=== PATIENT | female | born 1960 | race Caucasian/White ===

== ENCOUNTER 2017-11-26 18:59 | Inpatient (IN) | payer MEDICARE ==
[2017-11-26 21:01] LABS: ABS Basophils 0.1 10^3/ul (0-0.2); ABS Eosinophils 0.1 10^3/ul (0-0.6); ABS Lymphocytes 3.1 10^3/ul (1.0-4.8); ABS Monocytes 1.1 10^3/ul (0-0.8); ABS Neutrophils 11.2 10^3/ul (1.5-7.7); ABS Nucleated RBC 0 10^3/ul; Eosinophil % 0.6 % (0-6); Hematocrit 40 % (35-47); Hemoglobin 13.2 g/dl (12.0-16.0); Mean Corpuscular HGB Conc 33 g/dl (31-36); Mean Corpuscular Hemoglobin 29 pg (27-31); Mean Corpuscular Volume 88 fL (80-97); Mean Platelet Volume 9.5 um3 (7.4-10.4); Nucleated Red Blood Cells % 0.1; Platelet Count 184 10^3/ul (150-450); Red Blood Count 4.53 10^6/ul (4.0-5.4); Red Cell Distribution Width 14 % (10.5-15); White Blood Count 15.7 10^3/ul (3.5-10.8)
[2017-11-26 21:13] LABS: INR 1.05 (0.77-1.02)
[2017-11-26 21:23] LABS: EGFR Non-African American 67.4 (>60)
--- NOTE | 2017-11-26 21:26 | RAD ---
Indication: Fall, confusion. CT of the brain was performed without IV contrast. Comparison is made with previous exam dated October 24, 2012. Ventricular structures are midline. No midline shift is noted. Central and cortical atrophy is noted. Decreased densities are noted in the areas of periventricular and subcortical white matter which appears similar to prior exam. This is consistent with chronic ischemic White matter change. No evidence of intracranial mass or hemorrhage is noted. Mastoid air cells and paranasal sinuses are otherwise unremarkable. IMPRESSION: Atrophy with chronic ischemic White matter change. No intracranial mass or hemorrhage is noted.
--- NOTE | 2017-11-26 21:34 | ED ---
Dale Fowler Rebecca, scribed for Kip Seals MD on 11/26/17 at 1949 . Complex/Multi-Sys Presentation - HPI Summary HPI Summary: Pt is a 57 y/o F BIBA with a PMHx of MS who presents to ED for acute on chronic bilateral LE pain and weakness. Pt reports she has had pain "for so long, I don' t remember when," when asked of onset. Pain is described as sore and is moderate , ranked 5/10. Pt reports that both legs are weak and that she has been falling recently, including on Thursday (2 days ago) and having difficulty getting up. Confirms her legs have been this weak before. Family additionally notes that she has been confused and had a decreased appetite, as well as a sore on the back of the right leg. Denies CP, abd pain, neck and back pain. She does not believe she has been admitted to the hospital for MS exacerbation in the past. Does not currently have a neurologist, as he retired. Lives with family. - History Of Current Complaint Chief Complaint: EDAltMentalStatus Time Seen by Provider: 11/26/17 19:39 Hx Obtained From: Patient Onset/Duration: Still Present Severity Currently: Moderate - 5/10 Location: Pain At: - Bilateral LE Character: Dull - Sore Aggravating Factor(s): Nothing Alleviating Factor(s): Nothing Associated Signs And Symptoms: Positive: Weakness - LE, Other - Bilateral LE pain, confused. Negative: Chest Pain, Abdominal Pain - Allergies/Home Medications Allergies/Adverse Reactions: Allergies Allergy/AdvReac Type Severity Reaction Status Date / Time MS Ceftriaxone Allergy Severe Anaphylatic Verified 10/24/12 15:53 [From Rocephin] Shock MS Glatiramer [From Copaxone] Allergy Severe Anaphylatic Verified 10/24/12 15:53 Shock MS Mannitol [From Copaxone] Allergy Severe Anaphylatic Verified 10/24/12 15:53 Shock PMH/Surg Hx/FS Hx/Imm Hx Endocrine/Hematology History: Denies: Hx Anticoagulant Therapy, Hx Diabetes Cardiovascular History: Denies: Hx Congestive Heart Failure Neurological History: Reports: Other Neuro Impairments/Disorders - MS - Cancer History Hx Chemotherapy: No Hx Radiation Therapy: No Infectious Disease History: No Infectious Disease History: Denies: Traveled Outside the [place] in Last 30 Days - Family History Known Family History: Positive: Cardiac Disease, Hypertension - Social History Lives: With Family Substance Use Type: Reports: None Review of Systems Positive: Other - Confused Negative: Chest Pain Positive: Other - Decreased appetite. Negative: Abdominal Pain Positive: Other - Bilateral LE pain; NEGATIVE: Neck and back pain Positive: Other - Sore on back of right leg Positive: Weakness - Bilateral LE weakness All Other Systems Reviewed And Are Negative: Yes Physical Exam - Summary Physical Exam Summary: General: well-appearing, no pain distress Skin: warm, color reflects adequate perfusion, dry Head: normal Eyes: EOMI, MAEGAN ENT: normal Neck: supple, nontender Respiratory: CTA, breath sounds present Cardiovascular: RRR Abdomen: soft, nontender Bowel: present Musculoskeletal: she does not move her right leg, she has a pressure sore on her right heel and an abrasion on the right calf, normal pulses and capillary refill, she does move the left leg Neurological: normal, sensory/motor intact, A&O x3 Psychological: affect/mood appropriate Triage Information Reviewed: Yes Vital Signs On Initial Exam: Initial Vitals Temp Pulse Resp BP Pulse Ox 98.3 F 103 15 119/75 100 11/26/17 19:06 11/26/17 19:06 11/26/17 19:06 11/26/17 19:06 11/26/17 19:06 Vital Signs Reviewed: Yes - Susan Coma Scale Glascow Coma Scale Comments: 15 Diagnostics - Vital Signs Vital Signs Temp Pulse Resp BP Pulse Ox 11/26/17 19:06 98.3 F 103 15 119/75 100 - Laboratory Lab Results: Lab Results 11/26/17 11/26/17 11/26/17 Range/Units 20:48 20:48 20:48 WBC (3.5-10.8) 10^3/ul RBC (4.0-5.4) 10^6/ul Hgb (12.0-16.0) g/dl Hct (35-47) % MCV (80-97) fL MCH (27-31) pg MCHC (31-36) g/dl RDW (10.5-15) % Plt Count (150-450) 10^3/ul MPV (7.4-10.4) um3 Neut % (Auto) (38-83) % Lymph % (Auto) (25-47) % [place] % (Auto) (0-7) % Eos % (Auto) (0-6) % Baso % (Auto) (0-2) % Absolute Neuts (auto) (1.5-7.7) 10^3/ul Absolute Lymphs (auto) (1.0-4.8) 10^3/ul Absolute Monos (auto) (0-0.8) 10^3/ul Absolute Eos (auto) (0-0.6) 10^3/ul Absolute Basos (auto) (0-0.2) 10^3/ul Absolute Nucleated RBC 10^3/ul Nucleated RBC % INR (Anticoag Therapy) 1.05 H (0.77-1.02) APTT 26.6 (26.0-36.3) seconds D-Dimer, Quantitative > 1050 H (Less Than 230) ng/mL Sodium 137 L (139-145) mmol/L Potassium 4.0 (3.5-5.0) mmol/L Chloride 101 (101-111) mmol/L Carbon Dioxide 26 (22-32) mmol/L Anion Gap 10 (2-11) mmol/L BUN 31 H (6-24) mg/dL Creatinine 0.87 (0.51-0.95) mg/dL Est GFR ( Amer) 86.6 (>60) Est GFR (Non-Af Amer) 67.4 (>60) BUN/Creatinine Ratio 35.6 H (8-20) Glucose 106 H (70-100) mg/dL Lactic Acid (0.5-2.0) mmol/L Calcium 9.0 (8.6-10.3) mg/dL Magnesium 2.3 (1.9-2.7) mg/dL Total Bilirubin 0.90 (0.2-1.0) mg/dL AST 88 H (13-39) U/L ALT 40 (7-52) U/L Alkaline Phosphatase 86 (34-104) U/L Ammonia 47 (16-53) mcmol/L Total Creatine Kinase Pending CK-MB (CK-2) 7.0 H (0.6-6.3) ng/mL Troponin I 0.01 (<0.04) ng/mL C-Reactive Protein 128.63 H (< 5.00) mg/L B-Natriuretic Peptide 25 ( - 100) pg/mL Total Protein 7.1 (6.4-8.9) g/dL Albumin 3.6 (3.2-5.2) g/dL Globulin 3.5 (2-4) g/dL Albumin/Globulin Ratio 1.0 (1-3) Lipase 18 (11.0-82.0) U/L TSH Pending 11/26/17 11/26/17 Range/Units 20:48 20:48 WBC 15.7 H (3.5-10.8) 10^3/ul RBC 4.53 (4.0-5.4) 10^6/ul Hgb 13.2 (12.0-16.0) g/dl Hct 40 (35-47) % MCV 88 (80-97) fL MCH 29 (27-31) pg MCHC 33 (31-36) g/dl RDW 14 (10.5-15) % Plt Count 184 (150-450) 10^3/ul MPV 9.5 (7.4-10.4) um3 Neut % (Auto) 71.9 (38-83) % Lymph % (Auto) 20.0 L (25-47) % [place] % (Auto) 7.1 H (0-7) % Eos % (Auto) 0.6 (0-6) % Baso % (Auto) 0.4 (0-2) % Absolute Neuts (auto) 11.2 H (1.5-7.7) 10^3/ul Absolute Lymphs (auto) 3.1 (1.0-4.8) 10^3/ul Absolute Monos (auto) 1.1 H (0-0.8) 10^3/ul Absolute Eos (auto) 0.1 (0-0.6) 10^3/ul Absolute Basos (auto) 0.1 (0-0.2) 10^3/ul Absolute Nucleated RBC 0 10^3/ul Nucleated RBC % 0.1 INR (Anticoag Therapy) (0.77-1.02) APTT (26.0-36.3) seconds D-Dimer, Quantitative (Less Than 230) ng/mL Sodium (139-145) mmol/L Potassium (3.5-5.0) mmol/L Chloride (101-111) mmol/L Carbon Dioxide (22-32) mmol/L Anion Gap (2-11) mmol/L BUN (6-24) mg/dL Creatinine (0.51-0.95) mg/dL Est GFR ( Amer) (>60) Est GFR (Non-Af Amer) (>60) BUN/Creatinine Ratio (8-20) Glucose (70-100) mg/dL Lactic Acid 2.1 H* (0.5-2.0) mmol/L Calcium (8.6-10.3) mg/dL Magnesium (1.9-2.7) mg/dL Total Bilirubin (0.2-1.0) mg/dL AST (13-39) U/L ALT (7-52) U/L Alkaline Phosphatase (34-104) U/L Ammonia (16-53) mcmol/L Total Creatine Kinase CK-MB (CK-2) (0.6-6.3) ng/mL Troponin I (<0.04) ng/mL C-Reactive Protein (< 5.00) mg/L B-Natriuretic Peptide ( - 100) pg/mL Total Protein (6.4-8.9) g/dL Albumin (3.2-5.2) g/dL Globulin (2-4) g/dL Albumin/Globulin Ratio (1-3) Lipase (11.0-82.0) U/L TSH Result Diagrams: 11/26/17 20:48 11/26/17 20:48 Lab Statement: Any lab studies that have been ordered have been reviewed, and results considered in the medical decision making process. - Radiology CXR Radiology Interpretation Completed By: Radiologist - Pending radiology report. See [employer] for results. Femur XR Radiology Interpretation Completed By: Radiologist - Pending radiology report. See [employer] for results. Lower Leg XR Radiology Interpretation Completed By: Radiologist - Pending radiology report. See [employer] for results. - CT CT brain CT Interpretation Completed By: Radiologist - Pending radiology report. See [employer] for results. CT C-Spine CT Interpretation Completed By: Radiologist - Pending radiology report. See [employer] for results. CT L-Spine CT Interpretation Completed By: Radiologist - Pending radiology report. See [employer] for results. CT Abd/Pel CT Interpretation Completed By: Radiologist - Pending radiology report. See [employer] for results. Complex Multi-Symp Course/Dx Course Of Treatment: ADMIT HOSPITALIST Assessment/Plan: Medications and allergies noted. - Diagnoses Provider Diagnoses: Exacerbation of multiple sclerosis, Leg weakness - Physician Notifications Discussed Care Of Patient With: Jose Bowers Time Discussed With Above Provider: 20:32 Instructed by Provider To: Other - Accepts pt for admission. Discharge - Sign-Out/Discharge Documenting (check all that apply): Discharge/Admit/Transfer - Admit - Discharge Plan Condition: Stable Disposition: ADMITTED TO [facility] Referrals: No Primary Care Phys,NOPCP [Primary Care Provider] - - Billing Disposition and Condition Condition: STABLE Disposition: [facility] [place] The documentation as recorded by the Dale king Rebecca accurately reflects the service I personally performed and the decisions made by , Kip Seals MD.
--- NOTE | 2017-11-26 21:34 | RAD ---
Indication: Fall, confusion. CT of the abdomen and pelvis was performed without oral or IV contrast administration. Coronal and sagittal reconstructed images were obtained. Lung bases demonstrate no pleural fluid, nodules or masses. Heart is of normal size without evidence of pericardial effusion. The liver is normal in size. No focal lesions or intrahepatic ductal dilatation is noted. Gallbladder demonstrates no calcified gallstones. No pericholecystic fluid or wall thickening is noted. The spleen is normal in size. No adrenal masses are noted. The kidneys demonstrates no hydronephrosis in either kidney. No retroperitoneal lymphadenopathy is noted. CT of the pelvis demonstrates no pelvic lymphadenopathy. The uterus demonstrates an IUD in place. Calcifications are noted in the vagina. Scattered lymph nodes are noted in the inguinal region. No hernias are noted. There may be edema in the soft tissues surrounding the right gluteal muscles. A muscular injury is not excluded. This may represent an intramuscular hematoma involving the right gluteus medius muscles. No definite pelvic fracture is noted. IMPRESSION: There is soft tissue swelling superficial to the right hip. There is enlargement of the right gluteus medius muscle and the possibility of an intramuscular hematoma is not excluded. No definite fracture of the pelvis is noted however. No intra-abdominal hematoma is noted.
--- NOTE | 2017-11-26 21:35 | RAD ---
Indication: Fall, neck injury. CT of the cervical spine was obtained in the axial plane. Sagittal and coronal reconstructed images were obtained. Mastoid air cells are well aerated. C1 ring is intact. No fracture is noted. The vertebral bodies appear normal in height. There is some mild disc space. C4-C5 and C5-C6. No fracture is noted. IMPRESSION: Degenerative disc disease at C4-C5 and C5-C6 without evidence of fracture of the cervical spine.
--- NOTE | 2017-11-26 21:36 | RAD ---
Indication: Fall, inability to move the right lower extremity. CT of the lumbar spine was obtained in the axial plane. Sagittal and coronal reconstructed images were obtained. The vertebral bodies appear normal in height. Normal disc spaces are noted. Transverse and spinous processes are unremarkable. At L5-S1 no disc protrusion is noted. No central foraminal stenosis is noted. At L4-L5 minimal broad-based protrusion flattens the thecal sac. No central or foraminal stenosis is noted. At L3-L4, L2-L3 and L1-L2 no disc protrusion is noted. IMPRESSION: Minimal degenerative disc disease at L4-L5 with broad-based protrusion. No fracture of the lumbar spine is noted.
--- NOTE | 2017-11-26 21:53 | RAD ---
Indication: Right leg immobility. 2 views of the right femur demonstrates no fracture. Pelvic ring where visualized is otherwise unremarkable. IMPRESSION: No fracture of the right femur is noted.
--- NOTE | 2017-11-26 21:53 | RAD ---
Indication: Fall, unable to move the right leg. Single view of the chest demonstrates no mediastinal shift. Heart is of normal size and configuration. Lung allen appear clear. IMPRESSION: No active cardiopulmonary disease is noted.
--- NOTE | 2017-11-26 21:54 | RAD ---
Indication: Right lower leg inability to move. 2 views of the right tibia and fibula demonstrates no fracture. Ankle mortise is intact. IMPRESSION: No fracture of the right tibia and fibula is noted.
[2017-11-26] MEDS ORDERED: Iohexol 350* (CONTRAST) 500 ML MDV IV ONE (22:16)
[2017-11-26] MEDS ORDERED: Morphine VIAL* 4 MG/ML VIAL (1 ml vial) IV ONE (22:56)
[2017-11-26] MEDS ORDERED: Rivaroxaban TAB(*) 15 MG PO ONE (23:55)
[2017-11-27 00:15] LABS: Urine Appearance Cloudy; Urine Blood 3+ (Negative); Urine Color Yellow; Urine Ketones Negative (Negative); Urine Protein 2+(100 mg/dL) (Negative); Urine Specific Gravity > 1.060 (1.010-1.030); Urine Urobilinogen Negative (Negative)
[2017-11-27] MEDS ORDERED: CMCS: Melatonin (NF) 3 MG TAB PO PRN (00:29)
[2017-11-27] MEDS ORDERED: Ondansetron INJ* 2 MG/ML VIAL IV PRN (00:29)
[2017-11-27] MEDS ORDERED: oxyCODONE TAB* 5 MG TAB PO PRN (00:29)
--- NOTE | 2017-11-27 03:37 | HP ---
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 She takes no medications. She reports chronic generalized weakness and daily falls, the last of which was Thursday. After that fall she has had mild confusion, generalized weakness, intermittent nausea without emesis, & increased fatigue. She reports chronic severe fatigue at baseline. There has been no chest pain, SOB, palpitations, light-headedness, focal W/N/T, change in bowel/bladder, change in speech/swallow/vision. Her vision is reported as poor at baseline. There have been no exacerbating or alleviating factors. Work up has revealed a DVT with B pulmonary embolisms as well as marked hypothyroidism with a TSH of 44. Case was reviewed with Beth Vargas MD neurology who requests MRI brain/C-spine W/WO for assessing MS staging/ activity & will arrange evaluation in AM. PMedHx multiple sclerosis, not on therapy Ambulatory Orders NK [No Home Medications Reported] 11/26/17 Allergies Note: Mrs Rucker states she has never had an anaphylactic reaction. ceftriaxone Allergy (Verified 11/27/17 01:10) Anaphylatic Shock glatiramer (copolymer 1) Allergy (Verified 11/27/17 01:10) Anaphylatic Shock mannitol Allergy (Verified 11/27/17 01:10) Anaphylatic Shock PSurgHx denies SocHx: no tobacco, alcohol, or recreational drugs; lives with her mother; disabled ED nurse; full code status FamHx: Mother: alive 79, CAD, HTN; Father: alive 80, Alzheimer's, defibrillator ; Sister: HX addiction; Brother: HX traumatic brain injury ROS: as above, otherwise reviewed and all were negative vitals: Vital Signs Temp 37.2 C 11/27/17 02:31 Pulse 86 11/27/17 02:31 Resp 18 11/27/17 02:31 BP 115/61 11/27/17 02:31 Pulse Ox 100 11/27/17 02:31 Intake & Output 11/26/17 11/26/17 11/27/17 11:59 23:59 11:59 Weight 74.843 kg 74.843 kg Constitutional: NAD, normally developed, overweight white female HEENM: atraumatic; sclera/conjunctiva: anicteric/clear; hearing: clinically intact; oropharynx: clear, mucosa tacky Neck: soft tissue: non-tender; thyroid: non-tender, no mass, no goiter Pulmonary: clear to auscultation bilaterally, good aeration, no accessory muscle use CV: RR/RR, normal S1S2, no carotid bruit, no jugular venous distention, 2+ B DP/ PT, trace BLE edema Abdominal: soft, non-distended, non-tender, no rebound/guarding/rigidity, normoactive bowel sounds, no hepatosplenomegaly or masses, no costovertebral angle tenderness Musculoskeletal: general: grossly intact, non-tender to palpation Integumental: 6cm R heel unstageable ulcer, excoriations and maceration of groin /buttocks Psychiatric orientation: AA&O to PPS affect: calm mood: cooperative eye contact: good content: reliable responses: timely insight: fair to poor Testing: Lab Results 11/26/17 11/26/17 11/26/17 Range/Units 20:48 20:48 20:48 WBC (3.5-10.8) 10^3/ul RBC (4.0-5.4) 10^6/ul Hgb (12.0-16.0) g/dl Hct (35-47) % MCV (80-97) fL MCH (27-31) pg MCHC (31-36) g/dl RDW (10.5-15) % Plt Count (150-450) 10^3/ul MPV (7.4-10.4) um3 Neut % (Auto) (38-83) % Lymph % (Auto) (25-47) % [place] % (Auto) (0-7) % Eos % (Auto) (0-6) % Baso % (Auto) (0-2) % Absolute Neuts (auto) (1.5-7.7) 10^3/ul Absolute Lymphs (auto) (1.0-4.8) 10^3/ul Absolute Monos (auto) (0-0.8) 10^3/ul Absolute Eos (auto) (0-0.6) 10^3/ul Absolute Basos (auto) (0-0.2) 10^3/ul Absolute Nucleated RBC 10^3/ul Nucleated RBC % INR (Anticoag Therapy) 1.05 H (0.77-1.02) APTT 26.6 (26.0-36.3) seconds D-Dimer, Quantitative > 1050 H (Less Than 230) ng/mL Sodium 137 L (139-145) mmol/L Potassium 4.0 (3.5-5.0) mmol/L Chloride 101 (101-111) mmol/L Carbon Dioxide 26 (22-32) mmol/L Anion Gap 10 (2-11) mmol/L BUN 31 H (6-24) mg/dL Creatinine 0.87 (0.51-0.95) mg/dL Est GFR ( Amer) 86.6 (>60) Est GFR (Non-Af Amer) 67.4 (>60) BUN/Creatinine Ratio 35.6 H (8-20) Glucose 106 H (70-100) mg/dL Lactic Acid (0.5-2.0) mmol/L Calcium 9.0 (8.6-10.3) mg/dL Magnesium 2.3 (1.9-2.7) mg/dL Total Bilirubin 0.90 (0.2-1.0) mg/dL AST 88 H (13-39) U/L ALT 40 (7-52) U/L Alkaline Phosphatase 86 (34-104) U/L Ammonia 47 (16-53) mcmol/L Total Creatine Kinase 2750 H (10-223) U/L CK-MB (CK-2) 7.0 H (0.6-6.3) ng/mL Troponin I 0.01 (<0.04) ng/mL C-Reactive Protein 128.63 H (< 5.00) mg/L B-Natriuretic Peptide 25 ( - 100) pg/mL Total Protein 7.1 (6.4-8.9) g/dL Albumin 3.6 (3.2-5.2) g/dL Globulin 3.5 (2-4) g/dL Albumin/Globulin Ratio 1.0 (1-3) Lipase 18 (11.0-82.0) U/L Vitamin B12 351 (180-914) pg/mL Folate 8.67 (>3.99) ng/mL TSH 44.63 H (0.34-5.60) mcIU/mL Urine Color Urine Appearance Urine pH (5-9) Ur Specific [place] (1.010-1.030) Urine Protein (Negative) Urine Ketones (Negative) Urine Blood (Negative) Urine Nitrate (Negative) Urine Bilirubin (Negative) Urine Urobilinogen (Negative) Ur Leukocyte Esterase (Negative) Urine WBC (Auto) (Absent) Urine RBC (Auto) (Absent) Ur Squamous Epith Cells (Absent) Urine Bacteria (Absent) Urine Glucose (Negative) 11/26/17 11/26/17 11/27/17 Range/Units 20:48 20:48 00:00 WBC 15.7 H (3.5-10.8) 10^3/ul RBC 4.53 (4.0-5.4) 10^6/ul Hgb 13.2 (12.0-16.0) g/dl Hct 40 (35-47) % MCV 88 (80-97) fL MCH 29 (27-31) pg MCHC 33 (31-36) g/dl RDW 14 (10.5-15) % Plt Count 184 (150-450) 10^3/ul MPV 9.5 (7.4-10.4) um3 Neut % (Auto) 71.9 (38-83) % Lymph % (Auto) 20.0 L (25-47) % [place] % (Auto) 7.1 H (0-7) % Eos % (Auto) 0.6 (0-6) % Baso % (Auto) 0.4 (0-2) % Absolute Neuts (auto) 11.2 H (1.5-7.7) 10^3/ul Absolute Lymphs (auto) 3.1 (1.0-4.8) 10^3/ul Absolute Monos (auto) 1.1 H (0-0.8) 10^3/ul Absolute Eos (auto) 0.1 (0-0.6) 10^3/ul Absolute Basos (auto) 0.1 (0-0.2) 10^3/ul Absolute Nucleated RBC 0 10^3/ul Nucleated RBC % 0.1 INR (Anticoag Therapy) (0.77-1.02) APTT (26.0-36.3) seconds D-Dimer, Quantitative (Less Than 230) ng/mL Sodium (139-145) mmol/L Potassium (3.5-5.0) mmol/L Chloride (101-111) mmol/L Carbon Dioxide (22-32) mmol/L Anion Gap (2-11) mmol/L BUN (6-24) mg/dL Creatinine (0.51-0.95) mg/dL Est GFR ( Amer) (>60) Est GFR (Non-Af Amer) (>60) BUN/Creatinine Ratio (8-20) Glucose (70-100) mg/dL Lactic Acid 2.1 H* (0.5-2.0) mmol/L Calcium (8.6-10.3) mg/dL Magnesium (1.9-2.7) mg/dL Total Bilirubin (0.2-1.0) mg/dL AST (13-39) U/L ALT (7-52) U/L Alkaline Phosphatase (34-104) U/L Ammonia (16-53) mcmol/L Total Creatine Kinase (10-223) U/L CK-MB (CK-2) (0.6-6.3) ng/mL Troponin I (<0.04) ng/mL C-Reactive Protein (< 5.00) mg/L B-Natriuretic Peptide ( - 100) pg/mL Total Protein (6.4-8.9) g/dL Albumin (3.2-5.2) g/dL Globulin (2-4) g/dL Albumin/Globulin Ratio (1-3) Lipase (11.0-82.0) U/L Vitamin B12 (180-914) pg/mL Folate (>3.99) ng/mL TSH (0.34-5.60) mcIU/mL Urine Color Yellow Urine Appearance Cloudy Urine pH 6.0 (5-9) Ur Specific Hope > 1.060 H (1.010-1.030) Urine Protein 2+(100 mg/dl) A (Negative) Urine Ketones Negative (Negative) Urine Blood 3+ A (Negative) Urine Nitrate Positive A (Negative) Urine Bilirubin Negative (Negative) Urine Urobilinogen Negative (Negative) Ur Leukocyte Esterase 3+ A (Negative) Urine WBC (Auto) 3+(>20/hpf) A (Absent) Urine RBC (Auto) 3+(>10/hpf) A (Absent) Ur Squamous Epith Cells Present A (Absent) Urine Bacteria 1+ A (Absent) Urine Glucose Negative (Negative) 11/27/17 Range/Units 00:20 WBC (3.5-10.8) 10^3/ul RBC (4.0-5.4) 10^6/ul Hgb (12.0-16.0) g/dl Hct (35-47) % MCV (80-97) fL MCH (27-31) pg MCHC (31-36) g/dl RDW (10.5-15) % Plt Count (150-450) 10^3/ul MPV (7.4-10.4) um3 Neut % (Auto) (38-83) % Lymph % (Auto) (25-47) % [place] % (Auto) (0-7) % Eos % (Auto) (0-6) % Baso % (Auto) (0-2) % Absolute Neuts (auto) (1.5-7.7) 10^3/ul Absolute Lymphs (auto) (1.0-4.8) 10^3/ul Absolute Monos (auto) (0-0.8) 10^3/ul Absolute Eos (auto) (0-0.6) 10^3/ul Absolute Basos (auto) (0-0.2) 10^3/ul Absolute Nucleated RBC 10^3/ul Nucleated RBC % INR (Anticoag Therapy) (0.77-1.02) APTT (26.0-36.3) seconds D-Dimer, Quantitative (Less Than 230) ng/mL Sodium (139-145) mmol/L Potassium (3.5-5.0) mmol/L Chloride (101-111) mmol/L Carbon Dioxide (22-32) mmol/L Anion Gap (2-11) mmol/L BUN (6-24) mg/dL Creatinine (0.51-0.95) mg/dL Est GFR ( Amer) (>60) Est GFR (Non-Af Amer) (>60) BUN/Creatinine Ratio (8-20) Glucose (70-100) mg/dL Lactic Acid 1.4 (0.5-2.0) mmol/L Calcium (8.6-10.3) mg/dL Magnesium (1.9-2.7) mg/dL Total Bilirubin (0.2-1.0) mg/dL AST (13-39) U/L ALT (7-52) U/L Alkaline Phosphatase (34-104) U/L Ammonia (16-53) mcmol/L Total Creatine Kinase (10-223) U/L CK-MB (CK-2) (0.6-6.3) ng/mL Troponin I (<0.04) ng/mL C-Reactive Protein (< 5.00) mg/L B-Natriuretic Peptide ( - 100) pg/mL Total Protein (6.4-8.9) g/dL Albumin (3.2-5.2) g/dL Globulin (2-4) g/dL Albumin/Globulin Ratio (1-3) Lipase (11.0-82.0) U/L Vitamin B12 (180-914) pg/mL Folate (>3.99) ng/mL TSH (0.34-5.60) mcIU/mL Urine Color Urine Appearance Urine pH (5-9) Ur Specific Hope (1.010-1.030) Urine Protein (Negative) Urine Ketones (Negative) Urine Blood (Negative) Urine Nitrate (Negative) Urine Bilirubin (Negative) Urine Urobilinogen (Negative) Ur Leukocyte Esterase (Negative) Urine WBC (Auto) (Absent) Urine RBC (Auto) (Absent) Ur Squamous Epith Cells (Absent) Urine Bacteria (Absent) Urine Glucose (Negative) CXR, personally reviewed: IMPRESSION: No active cardiopulmonary disease is noted. CT brain WO, personally reviewed: IMPRESSION: Atrophy with chronic ischemic White matter change. No intracranial mass or hemorrhage is noted. CTA chest, personally reviewed: FINDINGS: There are filling defects seen in the bilateral lower lobe pulmonary arteries and pulmonary artery branches compatible with bilateral PE. There is no dissection. No pneumothorax. No acute infiltrates. There are no pleural effusions seen. No pericardial effusion. CT abd/pel WO, personally reviewed: IMPRESSION: There is soft tissue swelling superficial to the right hip. There is enlargement of the right gluteus medius muscle and the possibility of an intramuscular hematoma is not excluded. No definite fracture of the pelvis is noted however. No intra-abdominal hematoma is noted. CT C-spine WO: IMPRESSION: Degenerative disc disease at C4-C5 and C5-C6 without evidence of fracture of the cervical spine. CT L-spine WO: IMPRESSION: Minimal degenerative disc disease at L4-L5 with broad -based protrusion. No fracture of the lumbar spine is noted. XRY RLE: IMPRESSION: No fracture of the right tibia and fibula is noted. XRY R femur: IMPRESSION: No fracture of the right femur is noted. US BLE DVT: FINDINGS: Positive for DVT in the right profunda femoral vein, popliteal vein, posterior tibial veins, and peroneal veins. No evidence of deep venous thrombosis in the visualized segments of the left lower extremity deep venous system. Impression: 57F HX untreated multiple sclerosis lost to follow up who presents with confusion since a fall Thursday found to have an extensive RLE DVT, B pulmonary embolisms, marked hypothyroidism, and a 6cm unstageable R heel ulcer DIAGNOSIS & PLAN Primary extensive RLE DVT B pulmonary embolisms : treatment options discussed, questions sought & answered to patient/mother's satisfaction - opts for rivaroxaban : rivaroxaban 15mg PO BID x21 days then 20mg daily marked hypothyroidism : start levothyroxine 200mcgs daily : will need to establish with PCP for monitoring and adjustment post-discharge 6cm unstageable R heel ulcer : wound care consult placed Secondary multiple sclerosis, untreated : MRI brain/C-spine W/WO in AM : Beth Vargas MD neurology consulted, will arrange evaluation in AM Admission Rational: inpatient for initiation of anticoagulation for DVT/B PE, re -establishment with PCP/neurology, initiation of levothyroxine; inappropriate for outpatient setting DVTp: rivaroxaban Code Status: full HCP: mother
[2017-11-27 06:16] LABS: ABS Basophils 0 10^3/ul (0-0.2); ABS Eosinophils 0.1 10^3/ul (0-0.6); ABS Lymphocytes 2.3 10^3/ul (1.0-4.8); ABS Monocytes 0.9 10^3/ul (0-0.8); ABS Neutrophils 8.5 10^3/ul (1.5-7.7); ABS Nucleated RBC 0 10^3/ul; Hematocrit 33 % (35-47); Lymphocyte % 19.3 % (25-47); Mean Corpuscular HGB Conc 33 g/dl (31-36); Mean Corpuscular Hemoglobin 29 pg (27-31); Mean Corpuscular Volume 88 fL (80-97); Mean Platelet Volume 9.4 um3 (7.4-10.4); Nucleated Red Blood Cells % 0.1; Platelet Count 157 10^3/ul (150-450); Red Blood Count 3.77 10^6/ul (4.0-5.4); Red Cell Distribution Width 13 % (10.5-15); White Blood Count 11.9 10^3/ul (3.5-10.8)
[2017-11-27] MEDS: Levothyroxine TAB* 100 MCG TAB PO SCH (06:37)
[2017-11-27] MEDS: Omeprazole CAP* 20 MG PO SCH (06:37)
[2017-11-27 06:38] LABS: EGFR Non-African American 83.8 (>60)
--- NOTE | 2017-11-27 07:32 | RAD ---
INDICATION: Pedal edema, positive d-dimer. COMPARISON: There are no prior studies available for comparison. TECHNIQUE: Multiple real-time, color flow and Doppler tracings of both lower extremities were obtained. FINDINGS: There is deep venous thrombus within the right profunda femoral, right popliteal, right posterior tibial and peroneal veins. There is no evidence for deep venous thrombus within the left lower extremity. IMPRESSION: DEEP VENOUS THROMBUS WITHIN THE RIGHT PROFUNDA FEMORAL, POPLITEAL, POSTERIOR TIBIAL AND PERONEAL VEINS.
[2017-11-27] MEDS: Docusate CAP* 100 MG PO SCH ×2 (07:51→21:41)
[2017-11-27] MEDS: Ciprofloxacin 400MG IVPREMIX(* 400 MG/200 ML BAG IVPB SCH ×2 (07:52→18:20)
--- NOTE | 2017-11-27 07:52 | RAD ---
INDICATION: Altered mental status, positive d-dimer. COMPARISON: Comparison is made with a prior chest x-ray study of the same day. TECHNIQUE: A CT angiogram of the chest was performed with intravenous following intravenous injection of 67 ml of Omnipaque 350 nonionic contrast. Contiguous axial sections were obtained from the lung apices through the lung bases. Images were reconstructed in the coronal and sagittal planes. FINDINGS: There is a an intraluminal filling defect in the distal right main pulmonary artery extending into the interlobar artery, superior segmental artery branch and several basilar segmental artery branches. There is also an intraluminal filling defect in the left interlobar artery extending the superior segmental artery branch and into a couple basilar segmental artery branches consistent with multiple bilateral pulmonary emboli. The heart is within normal limits in size. No pericardial effusion is present. The thoracic aorta is normal in caliber without gross evidence for dissection. There is limited opacification present. No significant enlarged mediastinal or hilar lymph nodes are seen. Images of the upper abdomen demonstrate a small right renal cyst. No acute findings are visualized in the upper abdomen. There is a small 5 mm pulmonary nodule present adjacent to the minor fissure in the right middle lobe. The lungs are otherwise clear. No pleural effusion is seen. No significant focal osseous abnormality is seen. The results of this exam were called to the patient's nurse Demetrius. IMPRESSION: 1. MULTIPLE BILATERAL PULMONARY EMBOLI. 2. SMALL RIGHT MIDDLE LOBE PULMONARY NODULE. RECOMMEND A FOLLOW-UP CT OF THE CHEST IN ONE YEAR'S TIME.
--- NOTE | 2017-11-27 16:46 | PN ---
Hospitalist Progress Note Date of Service: 11/27/17 I have seen and examined Ms. Rucker and assume her care today. She feels okay , has no specific complaints. Weakness--progressive MS vs. UTI vs. PE Based on her history, she seems to have been declining subacutely over the past few months and still attempting to act as caregiver for her elderly parents, but has been falling frequently MRI pending, neurology evaluation. Has never taken medications for MS, appreciate neurology recs re: initiation of meds PT/OT consults, likely needs rehab Re: DVT/PE, xarelto has been started, no bleeding history Wound care consult for heel ulcer Also has macerated erythema over entire left back and side, looks like a chemical irritation, suggesting she may be less ambulatory than she suggests I have discussed the plan with Ms. Rucker and she understands. Inpatient.
[2017-11-27] MEDS: Rivaroxaban TAB(*) 15 MG PO SCH (18:19)
--- NOTE | 2017-11-27 19:58 | CONS ---
NEUROLOGY CONSULTATION: DATE OF CONSULT: 11/27/17. REASON FOR CONSULT: Multiple sclerosis. HISTORY OF PRESENT ILLNESS: Ms. Rucker is a 57-year-old woman with a history of multiple sclerosis since the late 80s according to her mother, not on any disease modifying therapy, who came into the emergency department yesterday after a fall. Upon her presentation to the emergency room, she was found to have DVT in her right leg with bilateral pulmonary embolisms as well as untreated hypothyroidism with a TSH of 44. She also has a urinary tract infection. She reports that her primary care physician was Dr. Chou, who is retired and she has not gotten another physician since then. She does not think she has ever seen a neurologist in the past, though she does report having been on Copaxone and interferon in the past, both of which she had adverse reactions to. Her mother reports that she preferred to use holistic medicine and used to see a physician in [facility], who used to do some sort of realignment of her spine. She has had progressive decline over the years and her mother notes that she has had decline in her mobility as well as in her cognition over the past year or so, worse over the past month and since she last fell on 11/24/17, she has been unable to walk at all. Prior to this, she was walking without any assistive devices, but walking very slowly. She denies any history of optic neuritis. She does occasionally have some vision difficulties secondary to her MS and feels that the MS has affected her legs more than her arms. It is not known when she last had any imaging of her brain or spinal cord, but her sister says that there is an MRI disc at home, which she will bring in for comparison sake. Given her longstanding history of multiple sclerosis without recent care, Neurology was asked to consult. PAST MEDICAL HISTORY: 1. Multiple sclerosis, not on any disease modifying therapy. 2. Hypothyroidism, not currently treated secondary to running out of her medications. HOME MEDICATIONS: None. ALLERGIES: Listed include CEFTRIAXONE, GLATIRAMER, and MANNITOL. FAMILY HISTORY: Mother has coronary artery disease and hypertension. Father with dementia. SOCIAL HISTORY: Denies tobacco, alcohol or drug use. She currently lives with her parents and her mother indicates she has done so for the past 6 years because she was not able to live on her own anymore, though the patient states that she lives with her parents so that she can take care of them because they have chronic health problems. She used to be a traveling emergency room nurse. REVIEW OF SYSTEMS: She has significant pain especially in her legs and especially in the right leg, but says she is always in pain related to her MS. She has some skin tears and ulcer on her right heel. PHYSICAL EXAM: Vital Signs: Temperature 99.2, blood pressure 112/54, heart rate 102, oxygen saturation 98% on room air. On general examination, she is a very pleasant woman in no acute distress. Her heart is in a regular rate and rhythm. The lungs were clear to auscultation. She has great difficulty with bed mobility at this point requiring some assistance just to sit forward for auscultation of lungs. She has bandages over her right heel and her right calf where she has some sores. On neurologic examination, she is aware that she is in the hospital, but she is not able to state the month or the year. She was able to state her date of , but stated that she is 56 years old. Her recall of her history is somewhat vague. She is very pleasant and thanked the examiner multiple times for various information. On cranial nerve testing, her pupils were equal, round , and reactive from 4 to 2 mm with no APD. She had a right exophoria, but her versions were full without nystagmus. Her allen appeared full to confrontation , but there was some possible extinction in the left lower quadrant versus inattention. Her facial sensation is symmetric to light touch. Facial musculature is full and symmetric. Hearing is intact to finger rub. The palate elevates symmetrically and the tongue is midline. Shoulder shrug is full and symmetric. On motor examination, she has spastic tone in her left lower extremity greater than her right lower extremity. She also has increased tone in her left upper extremity. Her right upper extremity seems full strength, but she has approximately grade 4- weakness of her left deltoid as well as some weakness of the biceps on that side. She is not able to lift either leg off the bed, though some of this at least seems to be due to pain and moving her legs. I am not able to full straighten her left leg at all. She is able to dorsiflex both feet and has only mild weakness there. Her reflexes are 2+ in the right upper extremity, 3+ left upper extremity, 2+ right knee, 3+ left knee , sustained clonus at the left ankle, and 2+ in the right ankle. Her toes were mute. There was no clear sensory loss in the upper or lower extremities. She had intention tremor on [id number], but no liya ataxia bilaterally. She cannot perform [id number]. DIAGNOSTIC STUDIES/LAB DATA: Her CBC is notable for a white blood cell count of 15.7 yesterday down to 11.9 today, hemoglobin 11, hematocrit 33, platelet count of 157. There is a predominance of neutrophils. Her D-dimer was greater than 1050, INR slightly elevated at 1.05. Chemistry panel today is notable for a sodium of 136, BUN of 25 which is improved from 31 yesterday. Her CK was 2750 , now 1994 today. CRP 128.63. AST 88, ALT 40, alkaline phosphatase 86. TSH was 44.63, B12 of 351, and folate 8.67. Ammonia was 47. Urinalysis showed 2+ protein, 3+ blood, positive nitrites, 3+ leukocyte esterase, 3+ wbc's, and 1+ bacteria with squamous epithelial cells present. Micro is pending on that. She had multiple CTs and x-rays of her spine, brain, chest and lower extremities , as well as a CTA of her chest and Doppler studies of her legs. Her brain CT shows atrophy and evidence of periventricular hypodensities consistent with her history of MS. Her right leg x-ray showed no evidence for fracture. Her lower extremity Doppler showed DVT in the right profunda, femoral, popliteal, posterior tibial and peroneal veins. Her CTA of the chest showed multiple bilateral pulmonary emboli and a small right middle lobe pulmonary nodule. IMPRESSION AND PLAN: Myrna Rucker is a 57-year-old woman with a longstanding history of multiple sclerosis, not on disease modifying therapy, admitted with right lower extremity deep venous thrombosis complicated by pulmonary emboli as well as urinary tract infection and exacerbated hypothyroidism secondary to not receiving treatment recently. She came in because of a fall after which she was unable to get up. Given all of the acute medical issues going on with her including infection and her current hypercoagulable state, we are consulting for her history of multiple sclerosis, but we will hold off on making any recommendations in terms of treating a possible exacerbation. It is not clear at this time if she still has relapsing remitting multiple sclerosis or if she is into a secondary progressive phase. I had recommended MRI of the brain as well as cervical spine with and without contrast when I spoke with Dr. Bowers last night and after examining the patient today, I will add on MRI of the thoracic spine. These studies would not be done until Thursday because she received contrast yesterday and we are coming into the weekend. Her increased difficulty walking recently could certainly be related to the multiple medical issues and infection that she has going on currently. As such, I would like to wait for the MRI scans to see if there is evidence of active lesions prior to considering steroids in this medically complicated patient. Going forward, she could likely benefit from establishing care with someone in our group and Dr. Frazier has received sign-out on the patient and will likely be checking in on her tomorrow. Thank you for this consultation. [id number]/CPS #: [id number] PAUL
[2017-11-27] MEDS: traMADol TAB* 50 MG PO PRN (21:40)
[2017-11-28] MEDS: Omeprazole CAP* 20 MG PO SCH (05:37)
[2017-11-28] MEDS: Levothyroxine TAB* 100 MCG TAB PO SCH (05:37)
[2017-11-28] MEDS: Ciprofloxacin 400MG IVPREMIX(* 400 MG/200 ML BAG IVPB SCH ×2 (06:21→17:42)
[2017-11-28 06:50] LABS: ABS Basophils 0 10^3/ul (0-0.2); ABS Eosinophils 0.2 10^3/ul (0-0.6); ABS Lymphocytes 2.4 10^3/ul (1.0-4.8); ABS Monocytes 0.9 10^3/ul (0-0.8); ABS Neutrophils 6.4 10^3/ul (1.5-7.7); ABS Nucleated RBC 0 10^3/ul; Hematocrit 29 % (35-47); Hemoglobin 9.9 g/dl (12.0-16.0); Lymphocyte % 24.5 % (25-47); Mean Corpuscular HGB Conc 34 g/dl (31-36); Mean Corpuscular Hemoglobin 30 pg (27-31); Mean Corpuscular Volume 87 fL (80-97); Mean Platelet Volume 8.9 um3 (7.4-10.4); Nucleated Red Blood Cells % 0.1; Platelet Count 163 10^3/ul (150-450); Red Blood Count 3.34 10^6/ul (4.0-5.4); Red Cell Distribution Width 13 % (10.5-15); White Blood Count 9.9 10^3/ul (3.5-10.8)
[2017-11-28] MEDS: Docusate CAP* 100 MG PO SCH ×2 (08:11→21:38)
[2017-11-28] MEDS: Rivaroxaban TAB(*) 15 MG PO SCH ×2 (08:11→17:42)
--- NOTE | 2017-11-28 09:51 | PN ---
Subjective Date of Service: 11/28/17 Interval History: No new issues overnight. She continues to complain of Lower extremity pain and tingling. She is unable to walk. She seems to have poor insight into her disease. She, at times, repeated herself. She is fully conversant and alert and oriented but talked about getting back to work, despite her severe disability. She denies any SOA or pain in her chest. She states that her legs are "aching." Objective Active Medications: Acetaminophen (Tylenol Tab*) 650 mg PO Q6H PRN PRN Reason: FEVER/PAIN Docusate Sodium (Colace Cap*) 200 mg PO BID [facility] Last Admin: 11/28/17 08:11 Dose: 200 mg Ciprofloxacin/Dextrose (Cipro 400 Mg Ivpremix(*)) 400 mg in 200 mls @ 200 mls/ hr IVPB 0600,1800 [facility] Stop: 11/29/17 06:59 Levothyroxine Sodium (Synthroid Tab*) 200 mcg PO DAILY@0600 [facility] Last Admin: 11/28/17 05:37 Dose: 200 mcg Melatonin (Melatonin (Nf)) 3 mg PO BEDTIME PRN; Protocol PRN Reason: Sleep Omeprazole (Prilosec Cap*) 20 mg PO DAILY@0600 [facility] Last Admin: 11/28/17 05:37 Dose: 20 mg Ondansetron HCl (Zofran Inj*) 4 mg IV Q6H PRN PRN Reason: NAUSEA Oxycodone HCl (Roxycodone Tab*) 5 mg PO Q6H PRN PRN Reason: PAIN Rivaroxaban (Xarelto(*)) 15 mg PO BID WITH MEALS [facility] Last Admin: 11/28/17 08:11 Dose: 15 mg Tramadol HCl (Ultram*) 50 mg PO Q6H PRN PRN Reason: PAIN Last Admin: 11/27/17 21:40 Dose: 50 mg Vital Signs 11/27/17 11/27/17 11/27/17 10:34 11:35 15:32 Temperature 99.3 F 99.2 F Pulse Rate 85 102 Respiratory 16 16 18 Rate Blood Pressure 122/64 112/54 (mmHg) O2 Sat by Pulse 98 98 Oximetry 11/27/17 11/27/17 11/27/17 18:34 20:30 20:37 Temperature 98.1 F Pulse Rate 91 Respiratory 16 20 20 Rate Blood Pressure 110/67 (mmHg) O2 Sat by Pulse 98 Oximetry 11/27/17 11/27/17 11/28/17 21:40 23:48 00:51 Temperature 99.7 F Pulse Rate 99 Respiratory 18 20 14 Rate Blood Pressure 97/70 (mmHg) O2 Sat by Pulse 98 Oximetry 11/28/17 11/28/17 11/28/17 03:20 07:25 08:16 Temperature 98.6 F 98.2 F Pulse Rate 111 76 Respiratory 16 16 20 Rate Blood Pressure 104/60 103/59 (mmHg) O2 Sat by Pulse 99 96 Oximetry Oxygen Devices in Use Now: None Neurology Exam: General: HEENT: Normocephelic/atraumatic, sclera anicteric, mucous membranes moist Neck: Supple. no meningismus Chest: Clear to auscultation bilaterally Cardiovascular: Regular rate and rhythm without murmurs, rubs, gallops Abdomen: Soft, nontender/nondistended Extremities: No redness, cords, swelling. Right heel ulceration Neurological Findings: Awake, Alert, Oriented x3 Speech: fluent without dysarthria, repetition intact Cranial Nerve: PEERL, EOM intact with right exophoria, VFF grossly, no nystagmus , face symmetric bilaterally, facial sensation intact, hearing intact to finger rub bilaterally, palate elevates symmetrically, tongue midline Motor: Increased tone in the arms and legs, left side greater than right and legs much greater than arms. Minimal movement of the LEs bilaterally due to pain. Antigravity without drift in the RUE with some proximal weakness in the LUE Sensation: No significant loss of LT/PP in the arms or legs Deep Tendon Reflex: 2+ right sided, 3+ left upper and lower extremities Finger to nose, rapid alternating movements intact without tremor, no dysdiadochokinesia Gait: Did not ambulate Result Diagrams: 11/28/17 06:32 11/28/17 06:32 Additional Lab and Data: Lab Results 11/26/17 11/26/17 11/26/17 Range/Units 20:48 20:48 20:48 WBC (3.5-10.8) 10^3/ul RBC (4.0-5.4) 10^6/ul Hgb (12.0-16.0) g/dl Hct (35-47) % MCV (80-97) fL MCH (27-31) pg MCHC (31-36) g/dl RDW (10.5-15) % Plt Count (150-450) 10^3/ul MPV (7.4-10.4) um3 Neut % (Auto) (38-83) % Lymph % (Auto) (25-47) % [place] % (Auto) (0-7) % Eos % (Auto) (0-6) % Baso % (Auto) (0-2) % Absolute Neuts (auto) (1.5-7.7) 10^3/ul Absolute Lymphs (auto) (1.0-4.8) 10^3/ul Absolute Monos (auto) (0-0.8) 10^3/ul Absolute Eos (auto) (0-0.6) 10^3/ul Absolute Basos (auto) (0-0.2) 10^3/ul Absolute Nucleated RBC 10^3/ul Nucleated RBC % INR (Anticoag Therapy) 1.05 H (0.77-1.02) APTT 26.6 (26.0-36.3) seconds D-Dimer, Quantitative > 1050 H (Less Than 230) ng/mL Sodium 137 L (139-145) mmol/L Potassium 4.0 (3.5-5.0) mmol/L Chloride 101 (101-111) mmol/L Carbon Dioxide 26 (22-32) mmol/L Anion Gap 10 (2-11) mmol/L BUN 31 H (6-24) mg/dL Creatinine 0.87 (0.51-0.95) mg/dL Est GFR ( Amer) 86.6 (>60) Est GFR (Non-Af Amer) 67.4 (>60) BUN/Creatinine Ratio 35.6 H (8-20) Glucose 106 H (70-100) mg/dL Lactic Acid (0.5-2.0) mmol/L Calcium 9.0 (8.6-10.3) mg/dL Magnesium 2.3 (1.9-2.7) mg/dL Total Bilirubin 0.90 (0.2-1.0) mg/dL AST 88 H (13-39) U/L ALT 40 (7-52) U/L Alkaline Phosphatase 86 (34-104) U/L Ammonia 47 (16-53) mcmol/L Total Creatine Kinase Pending CK-MB (CK-2) 7.0 H (0.6-6.3) ng/mL Troponin I 0.01 (<0.04) ng/mL C-Reactive Protein 128.63 H (< 5.00) mg/L B-Natriuretic Peptide 25 ( - 100) pg/mL Total Protein 7.1 (6.4-8.9) g/dL Albumin 3.6 (3.2-5.2) g/dL Globulin 3.5 (2-4) g/dL Albumin/Globulin Ratio 1.0 (1-3) Lipase 18 (11.0-82.0) U/L TSH Pending 11/26/17 11/26/17 Range/Units 20:48 20:48 WBC 15.7 H (3.5-10.8) 10^3/ul RBC 4.53 (4.0-5.4) 10^6/ul Hgb 13.2 (12.0-16.0) g/dl Hct 40 (35-47) % MCV 88 (80-97) fL MCH 29 (27-31) pg MCHC 33 (31-36) g/dl RDW 14 (10.5-15) % Plt Count 184 (150-450) 10^3/ul MPV 9.5 (7.4-10.4) um3 Neut % (Auto) 71.9 (38-83) % Lymph % (Auto) 20.0 L (25-47) % [place] % (Auto) 7.1 H (0-7) % Eos % (Auto) 0.6 (0-6) % Baso % (Auto) 0.4 (0-2) % Absolute Neuts (auto) 11.2 H (1.5-7.7) 10^3/ul Absolute Lymphs (auto) 3.1 (1.0-4.8) 10^3/ul Absolute Monos (auto) 1.1 H (0-0.8) 10^3/ul Absolute Eos (auto) 0.1 (0-0.6) 10^3/ul Absolute Basos (auto) 0.1 (0-0.2) 10^3/ul Absolute Nucleated RBC 0 10^3/ul Nucleated RBC % 0.1 INR (Anticoag Therapy) (0.77-1.02) APTT (26.0-36.3) seconds D-Dimer, Quantitative (Less Than 230) ng/mL Sodium (139-145) mmol/L Potassium (3.5-5.0) mmol/L Chloride (101-111) mmol/L Carbon Dioxide (22-32) mmol/L Anion Gap (2-11) mmol/L BUN (6-24) mg/dL Creatinine (0.51-0.95) mg/dL Est GFR ( Amer) (>60) Est GFR (Non-Af Amer) (>60) BUN/Creatinine Ratio (8-20) Glucose (70-100) mg/dL Lactic Acid 2.1 H* (0.5-2.0) mmol/L Calcium (8.6-10.3) mg/dL Magnesium (1.9-2.7) mg/dL Total Bilirubin (0.2-1.0) mg/dL AST (13-39) U/L ALT (7-52) U/L Alkaline Phosphatase (34-104) U/L Ammonia (16-53) mcmol/L Total Creatine Kinase CK-MB (CK-2) (0.6-6.3) ng/mL Troponin I (<0.04) ng/mL C-Reactive Protein (< 5.00) mg/L B-Natriuretic Peptide ( - 100) pg/mL Total Protein (6.4-8.9) g/dL Albumin (3.2-5.2) g/dL Globulin (2-4) g/dL Albumin/Globulin Ratio (1-3) Lipase (11.0-82.0) U/L TSH Assessment/Plan 57 year old with a long history of MS, previously treated with IFN, Copaxone years ago but has been seeking homeopathic treatment for years with steady decline, falls, disabled, living with her parents, seems to have some cognitive issues as well with poor insight into level of disability. Admitted with inability to walk, LE pain, RLE DVT, PEs, UTI, anemia, rhabdo (improving), hypothyroid-untreated. At this point, I suspect she is probably in Secondary Progressive stage of MS although, without prior records, it is difficult to say. We are awaiting MRIs of the Brain, C and T spine which will happen Thursday. Given her acute medical issues, I would certainly not start any DMT for MS acutely. Given the progressive nature of her symptoms and unknown level of disability, I think the risks of steroids largely outweighs the risks with increased risk of infection and hypercoaguable state. The plan is to follow up imaging on Thursday when we might be able to make further recommendations, although decisions regarding the management of her MS will likely need to be made on an outpatient basis. She is adamant at this point about not wanting to take any DMT. I will be happy to see her as an outpatient once she is discharged.
--- NOTE | 2017-11-28 17:17 | PN ---
Subjective Date of Service: 11/28/17 Interval History: Pt seen and examined. Meds and labs reviewed. ROS: Mentions she has manageable MS pain and does not want to take additional medciations. Denied GILLIS/dizziness, F/C, N/V, CP, SOB, increased cough, sputum production, abd pain, diarrhea, constipation, dysuria, throat pain, and new skin lesions. The rest of the 14 point ROS are unremarkable. PHYSICAL EXAM: GEN APPEARANCE: Awake, not in acute distress HEENT: NC/AT, PERRLA, moist oral mucosa, (-) throat erythema NECK: Soft, supple, (-) cervical LAD, (-)JVD HEART: S1S2 WNL, RRR, No MRG CHEST: CTA, BL, GAE, No W/R/R ABD: Soft, ND/NT, NABS 4x Q EXT: No C/C/E SKIN: Warm to touch PSYCH: No active psychosis, hallucinations, depression, SI/HI Objective Active Medications: Acetaminophen (Tylenol Tab*) 650 mg PO Q6H PRN PRN Reason: FEVER/PAIN Docusate Sodium (Colace Cap*) 200 mg PO BID [facility] Last Admin: 11/28/17 08:11 Dose: 200 mg Ciprofloxacin/Dextrose (Cipro 400 Mg Ivpremix(*)) 400 mg in 200 mls @ 200 mls/ hr IVPB 0600,1800 [facility] Stop: 11/29/17 06:59 Levothyroxine Sodium (Synthroid Tab*) 200 mcg PO DAILY@0600 [facility] Last Admin: 11/28/17 05:37 Dose: 200 mcg Melatonin (Melatonin (Nf)) 3 mg PO BEDTIME PRN; Protocol PRN Reason: Sleep Omeprazole (Prilosec Cap*) 20 mg PO DAILY@0600 [facility] Last Admin: 11/28/17 05:37 Dose: 20 mg Ondansetron HCl (Zofran Inj*) 4 mg IV Q6H PRN PRN Reason: NAUSEA Oxycodone HCl (Roxycodone Tab*) 5 mg PO Q6H PRN PRN Reason: PAIN Rivaroxaban (Xarelto(*)) 15 mg PO BID WITH MEALS [facility] Last Admin: 11/28/17 08:11 Dose: 15 mg Tramadol HCl (Ultram*) 50 mg PO Q6H PRN PRN Reason: PAIN Last Admin: 11/27/17 21:40 Dose: 50 mg Vital Signs - 8 hr 11/28/17 11/28/17 11:54 15:37 Temperature 98.5 F 98.7 F Pulse Rate 83 84 Respiratory 22 16 Rate Blood Pressure 95/80 107/53 (mmHg) O2 Sat by Pulse 98 99 Oximetry Oxygen Devices in Use Now: None Result Diagrams: 11/28/17 06:32 11/28/17 06:32 Additional Lab and Data: Lab Results 11/26/17 11/26/17 11/26/17 Range/Units 20:48 20:48 20:48 WBC (3.5-10.8) 10^3/ul RBC (4.0-5.4) 10^6/ul Hgb (12.0-16.0) g/dl Hct (35-47) % MCV (80-97) fL MCH (27-31) pg MCHC (31-36) g/dl RDW (10.5-15) % Plt Count (150-450) 10^3/ul MPV (7.4-10.4) um3 Neut % (Auto) (38-83) % Lymph % (Auto) (25-47) % [place] % (Auto) (0-7) % Eos % (Auto) (0-6) % Baso % (Auto) (0-2) % Absolute Neuts (auto) (1.5-7.7) 10^3/ul Absolute Lymphs (auto) (1.0-4.8) 10^3/ul Absolute Monos (auto) (0-0.8) 10^3/ul Absolute Eos (auto) (0-0.6) 10^3/ul Absolute Basos (auto) (0-0.2) 10^3/ul Absolute Nucleated RBC 10^3/ul Nucleated RBC % INR (Anticoag Therapy) 1.05 H (0.77-1.02) APTT 26.6 (26.0-36.3) seconds D-Dimer, Quantitative > 1050 H (Less Than 230) ng/mL Sodium 137 L (139-145) mmol/L Potassium 4.0 (3.5-5.0) mmol/L Chloride 101 (101-111) mmol/L Carbon Dioxide 26 (22-32) mmol/L Anion Gap 10 (2-11) mmol/L BUN 31 H (6-24) mg/dL Creatinine 0.87 (0.51-0.95) mg/dL Est GFR ( Amer) 86.6 (>60) Est GFR (Non-Af Amer) 67.4 (>60) BUN/Creatinine Ratio 35.6 H (8-20) Glucose 106 H (70-100) mg/dL Lactic Acid (0.5-2.0) mmol/L Calcium 9.0 (8.6-10.3) mg/dL Magnesium 2.3 (1.9-2.7) mg/dL Total Bilirubin 0.90 (0.2-1.0) mg/dL AST 88 H (13-39) U/L ALT 40 (7-52) U/L Alkaline Phosphatase 86 (34-104) U/L Ammonia 47 (16-53) mcmol/L Total Creatine Kinase Pending CK-MB (CK-2) 7.0 H (0.6-6.3) ng/mL Troponin I 0.01 (<0.04) ng/mL C-Reactive Protein 128.63 H (< 5.00) mg/L B-Natriuretic Peptide 25 ( - 100) pg/mL Total Protein 7.1 (6.4-8.9) g/dL Albumin 3.6 (3.2-5.2) g/dL Globulin 3.5 (2-4) g/dL Albumin/Globulin Ratio 1.0 (1-3) Lipase 18 (11.0-82.0) U/L TSH Pending 11/26/17 11/26/17 Range/Units 20:48 20:48 WBC 15.7 H (3.5-10.8) 10^3/ul RBC 4.53 (4.0-5.4) 10^6/ul Hgb 13.2 (12.0-16.0) g/dl Hct 40 (35-47) % MCV 88 (80-97) fL MCH 29 (27-31) pg MCHC 33 (31-36) g/dl RDW 14 (10.5-15) % Plt Count 184 (150-450) 10^3/ul MPV 9.5 (7.4-10.4) um3 Neut % (Auto) 71.9 (38-83) % Lymph % (Auto) 20.0 L (25-47) % [place] % (Auto) 7.1 H (0-7) % Eos % (Auto) 0.6 (0-6) % Baso % (Auto) 0.4 (0-2) % Absolute Neuts (auto) 11.2 H (1.5-7.7) 10^3/ul Absolute Lymphs (auto) 3.1 (1.0-4.8) 10^3/ul Absolute Monos (auto) 1.1 H (0-0.8) 10^3/ul Absolute Eos (auto) 0.1 (0-0.6) 10^3/ul Absolute Basos (auto) 0.1 (0-0.2) 10^3/ul Absolute Nucleated RBC 0 10^3/ul Nucleated RBC % 0.1 INR (Anticoag Therapy) (0.77-1.02) APTT (26.0-36.3) seconds D-Dimer, Quantitative (Less Than 230) ng/mL Sodium (139-145) mmol/L Potassium (3.5-5.0) mmol/L Chloride (101-111) mmol/L Carbon Dioxide (22-32) mmol/L Anion Gap (2-11) mmol/L BUN (6-24) mg/dL Creatinine (0.51-0.95) mg/dL Est GFR ( Amer) (>60) Est GFR (Non-Af Amer) (>60) BUN/Creatinine Ratio (8-20) Glucose (70-100) mg/dL Lactic Acid 2.1 H* (0.5-2.0) mmol/L Calcium (8.6-10.3) mg/dL Magnesium (1.9-2.7) mg/dL Total Bilirubin (0.2-1.0) mg/dL AST (13-39) U/L ALT (7-52) U/L Alkaline Phosphatase (34-104) U/L Ammonia (16-53) mcmol/L Total Creatine Kinase CK-MB (CK-2) (0.6-6.3) ng/mL Troponin I (<0.04) ng/mL C-Reactive Protein (< 5.00) mg/L B-Natriuretic Peptide ( - 100) pg/mL Total Protein (6.4-8.9) g/dL Albumin (3.2-5.2) g/dL Globulin (2-4) g/dL Albumin/Globulin Ratio (1-3) Lipase (11.0-82.0) U/L TSH Assess/Plan/Problems-Billing - Patient Problems (1) Multiple sclerosis Current Visit: Yes Comment: --Appreciate Dr. Frazier's input --Awaiting MRIs of the brain, C&T spines on Thursday to complete neuro eval --Pt prefers no DMT and was on homeopathic therapy of MS as outpt (2) DVT (deep venous thrombosis) Current Visit: Yes Comment: --Concomittant with scattered PE on radiological exam --Continue Rivaroxaban (3) Heel ulcer Current Visit: Yes Status: Acute Code(s): L97.409 - NON-PRS CHRONIC ULCER OF UNSP HEEL AND MIDFOOT W UNSP SEVERT SNOMED Code(s): 187422242 Comment: --Right heel --Awaiting any further recommendations from wound care --Continue quinolone (4) DVT prophylaxis Current Visit: Yes Comment: --On Rivaroxaban Status and Disposition: --Awaiting imaging on Thursday as described above --For PT eval to evaluate any needs
[2017-11-28] MEDS: traMADol TAB* 50 MG PO PRN (17:42)
[2017-11-29] MEDS: Ciprofloxacin 400MG IVPREMIX(* 400 MG/200 ML BAG IVPB SCH (05:48)
[2017-11-29] MEDS: Levothyroxine TAB* 100 MCG TAB PO SCH (05:56)
[2017-11-29] MEDS: Omeprazole CAP* 20 MG PO SCH (05:56)
[2017-11-29 07:26] LABS: ABS Basophils 0 10^3/ul (0-0.2); ABS Eosinophils 0.3 10^3/ul (0-0.6); ABS Lymphocytes 2.2 10^3/ul (1.0-4.8); ABS Monocytes 0.8 10^3/ul (0-0.8); ABS Neutrophils 6.1 10^3/ul (1.5-7.7); ABS Nucleated RBC 0 10^3/ul; Eosinophil % 3.2 % (0-6); Hematocrit 29 % (35-47); Hemoglobin 9.8 g/dl (12.0-16.0); Lymphocyte % 23.4 % (25-47); Mean Corpuscular HGB Conc 34 g/dl (31-36); Mean Corpuscular Hemoglobin 30 pg (27-31); Mean Corpuscular Volume 88 fL (80-97); Mean Platelet Volume 8.7 um3 (7.4-10.4); Nucleated Red Blood Cells % 0; Platelet Count 193 10^3/ul (150-450); Red Blood Count 3.32 10^6/ul (4.0-5.4); Red Cell Distribution Width 13 % (10.5-15); White Blood Count 9.4 10^3/ul (3.5-10.8)
[2017-11-29 07:50] LABS: EGFR Non-African American 89.5 (>60)
[2017-11-29] MEDS: Rivaroxaban TAB(*) 15 MG PO SCH ×2 (08:10→16:14)
[2017-11-29] MEDS: Docusate CAP* 100 MG PO SCH ×2 (08:10→22:15)
[2017-11-29 11:43] LABS: Urine Appearance Cloudy; Urine Blood 3+ (Negative); Urine Color Yellow; Urine Ketones Negative (Negative); Urine Protein 2+(100 mg/dL) (Negative); Urine Specific Gravity 1.015 (1.010-1.030); Urine Urobilinogen Negative (Negative)
--- NOTE | 2017-11-29 14:44 | PN ---
Subjective Date of Service: 11/29/17 Interval History: Pt seen and examined. Meds and labs reviewed. During my AM rounds today with staff, catheter bag was observed to be somewhat tea-colored and may be suggestive of hematuria. U/A w/ reflex culture ordered. ROS: Denied GILLIS/dizziness, F/C, N/V, CP, SOB, increased cough, sputum production , abd pain, diarrhea, constipation, dysuria, myalgias, arthralgias, throat pain , and new skin lesions. The rest of the 14 point ROS are unremarkable. PHYSICAL EXAM: GEN APPEARANCE: Awake, not in acute distress HEENT: NC/AT, PERRLA, moist oral mucosa, (-) throat erythema NECK: Soft, supple, (-) cervical LAD, (-)JVD HEART: S1S2 WNL, RRR, No MRG CHEST: CTA, BL, GAE, No W/R/R ABD: Soft, ND/NT, NABS 4x Q EXT: No C/C/E SKIN: Warm to touch PSYCH: No active psychosis, hallucinations, depression, SI/HI Objective Active Medications: Acetaminophen (Tylenol Tab*) 650 mg PO Q6H PRN PRN Reason: FEVER/PAIN Docusate Sodium (Colace Cap*) 200 mg PO BID [facility] Last Admin: 11/29/17 08:10 Dose: 200 mg Doxycycline Hyclate (Vibramycin Cap(*)) 100 mg PO BID [facility] Stop: 12/09/17 20:59 Sodium Chloride (Ns 0.9% 1000 Ml*) 1,000 mls @ 75 mls/hr IV PER RATE [facility] Levothyroxine Sodium (Synthroid Tab*) 200 mcg PO DAILY@0600 [facility] Last Admin: 11/29/17 05:56 Dose: 200 mcg Melatonin (Melatonin (Nf)) 3 mg PO BEDTIME PRN; Protocol PRN Reason: Sleep Omeprazole (Prilosec Cap*) 20 mg PO DAILY@0600 [facility] Last Admin: 11/29/17 05:56 Dose: 20 mg Ondansetron HCl (Zofran Inj*) 4 mg IV Q6H PRN PRN Reason: NAUSEA Oxycodone HCl (Roxycodone Tab*) 5 mg PO Q6H PRN PRN Reason: PAIN Rivaroxaban (Xarelto(*)) 15 mg PO BID WITH MEALS [facility] Last Admin: 11/29/17 08:10 Dose: 15 mg Tramadol HCl (Ultram*) 50 mg PO Q6H PRN PRN Reason: PAIN Last Admin: 11/28/17 17:42 Dose: 50 mg Vital Signs - 8 hr 11/29/17 11/29/17 11/29/17 07:46 10:12 11:51 Temperature 99.4 F 98.8 F Pulse Rate 77 78 Respiratory 18 18 18 Rate Blood Pressure 103/51 118/51 (mmHg) O2 Sat by Pulse 97 100 Oximetry Oxygen Devices in Use Now: None Result Diagrams: 11/29/17 07:13 11/29/17 07:13 Additional Lab and Data: Lab Results 11/26/17 11/26/17 11/26/17 Range/Units 20:48 20:48 20:48 WBC (3.5-10.8) 10^3/ul RBC (4.0-5.4) 10^6/ul Hgb (12.0-16.0) g/dl Hct (35-47) % MCV (80-97) fL MCH (27-31) pg MCHC (31-36) g/dl RDW (10.5-15) % Plt Count (150-450) 10^3/ul MPV (7.4-10.4) um3 Neut % (Auto) (38-83) % Lymph % (Auto) (25-47) % [place] % (Auto) (0-7) % Eos % (Auto) (0-6) % Baso % (Auto) (0-2) % Absolute Neuts (auto) (1.5-7.7) 10^3/ul Absolute Lymphs (auto) (1.0-4.8) 10^3/ul Absolute Monos (auto) (0-0.8) 10^3/ul Absolute Eos (auto) (0-0.6) 10^3/ul Absolute Basos (auto) (0-0.2) 10^3/ul Absolute Nucleated RBC 10^3/ul Nucleated RBC % INR (Anticoag Therapy) 1.05 H (0.77-1.02) APTT 26.6 (26.0-36.3) seconds D-Dimer, Quantitative > 1050 H (Less Than 230) ng/mL Sodium 137 L (139-145) mmol/L Potassium 4.0 (3.5-5.0) mmol/L Chloride 101 (101-111) mmol/L Carbon Dioxide 26 (22-32) mmol/L Anion Gap 10 (2-11) mmol/L BUN 31 H (6-24) mg/dL Creatinine 0.87 (0.51-0.95) mg/dL Est GFR ( Amer) 86.6 (>60) Est GFR (Non-Af Amer) 67.4 (>60) BUN/Creatinine Ratio 35.6 H (8-20) Glucose 106 H (70-100) mg/dL Lactic Acid (0.5-2.0) mmol/L Calcium 9.0 (8.6-10.3) mg/dL Magnesium 2.3 (1.9-2.7) mg/dL Total Bilirubin 0.90 (0.2-1.0) mg/dL AST 88 H (13-39) U/L ALT 40 (7-52) U/L Alkaline Phosphatase 86 (34-104) U/L Ammonia 47 (16-53) mcmol/L Total Creatine Kinase Pending CK-MB (CK-2) 7.0 H (0.6-6.3) ng/mL Troponin I 0.01 (<0.04) ng/mL C-Reactive Protein 128.63 H (< 5.00) mg/L B-Natriuretic Peptide 25 ( - 100) pg/mL Total Protein 7.1 (6.4-8.9) g/dL Albumin 3.6 (3.2-5.2) g/dL Globulin 3.5 (2-4) g/dL Albumin/Globulin Ratio 1.0 (1-3) Lipase 18 (11.0-82.0) U/L TSH Pending 11/26/17 11/26/17 Range/Units 20:48 20:48 WBC 15.7 H (3.5-10.8) 10^3/ul RBC 4.53 (4.0-5.4) 10^6/ul Hgb 13.2 (12.0-16.0) g/dl Hct 40 (35-47) % MCV 88 (80-97) fL MCH 29 (27-31) pg MCHC 33 (31-36) g/dl RDW 14 (10.5-15) % Plt Count 184 (150-450) 10^3/ul MPV 9.5 (7.4-10.4) um3 Neut % (Auto) 71.9 (38-83) % Lymph % (Auto) 20.0 L (25-47) % [place] % (Auto) 7.1 H (0-7) % Eos % (Auto) 0.6 (0-6) % Baso % (Auto) 0.4 (0-2) % Absolute Neuts (auto) 11.2 H (1.5-7.7) 10^3/ul Absolute Lymphs (auto) 3.1 (1.0-4.8) 10^3/ul Absolute Monos (auto) 1.1 H (0-0.8) 10^3/ul Absolute Eos (auto) 0.1 (0-0.6) 10^3/ul Absolute Basos (auto) 0.1 (0-0.2) 10^3/ul Absolute Nucleated RBC 0 10^3/ul Nucleated RBC % 0.1 INR (Anticoag Therapy) (0.77-1.02) APTT (26.0-36.3) seconds D-Dimer, Quantitative (Less Than 230) ng/mL Sodium (139-145) mmol/L Potassium (3.5-5.0) mmol/L Chloride (101-111) mmol/L Carbon Dioxide (22-32) mmol/L Anion Gap (2-11) mmol/L BUN (6-24) mg/dL Creatinine (0.51-0.95) mg/dL Est GFR ( Amer) (>60) Est GFR (Non-Af Amer) (>60) BUN/Creatinine Ratio (8-20) Glucose (70-100) mg/dL Lactic Acid 2.1 H* (0.5-2.0) mmol/L Calcium (8.6-10.3) mg/dL Magnesium (1.9-2.7) mg/dL Total Bilirubin (0.2-1.0) mg/dL AST (13-39) U/L ALT (7-52) U/L Alkaline Phosphatase (34-104) U/L Ammonia (16-53) mcmol/L Total Creatine Kinase CK-MB (CK-2) (0.6-6.3) ng/mL Troponin I (<0.04) ng/mL C-Reactive Protein (< 5.00) mg/L B-Natriuretic Peptide ( - 100) pg/mL Total Protein (6.4-8.9) g/dL Albumin (3.2-5.2) g/dL Globulin (2-4) g/dL Albumin/Globulin Ratio (1-3) Lipase (11.0-82.0) U/L TSH Assess/Plan/Problems-Billing 57 year old with a long history of MS, previously treated with IFN, Copaxone years ago but has been seeking homeopathic treatment for years with steady decline, falls, disabled, living with her parents, seems to have some cognitive issues as well with poor insight into level of disability. Admitted with inability to walk, LE pain, RLE DVT, PEs, UTI, anemia, rhabdo (improving), hypothyroid-untreated. At this point, I suspect she is probably in Secondary Progressive stage of MS although, without prior records, it is difficult to say. We are awaiting MRIs of the Brain, C and T spine which will happen Thursday. Given her acute medical issues, I would certainly not start any DMT for MS acutely. Given the progressive nature of her symptoms and unknown level of disability, I think the risks of steroids largely outweighs the risks with increased risk of infection and hypercoaguable state. The plan is to follow up imaging on Thursday when we might be able to make further recommendations, although decisions regarding the management of her MS will likely need to be made on an outpatient basis. She is adamant at this point about not wanting to take any DMT. I will be happy to see her as an outpatient once she is discharged. - Patient Problems (1) Multiple sclerosis Current Visit: Yes Comment: --Appreciate Dr. Frazier's input --Awaiting MRIs of the brain, C&T spines on Thursday to complete neuro eval --Pt prefers no DMT and was on homeopathic therapy of MS as outpt (2) DVT (deep venous thrombosis) Current Visit: Yes Comment: --Concomittant with scattered PE on radiological exam --Continue Rivaroxaban (3) UTI (urinary tract infection) Current Visit: Yes Status: Acute Comment: --Likely secondary to E. coli given previous cultures; pt has been on antibiotic on Levaquin but was d/c'd and after 2 days of DC now with hematuria --U/A ordered with reflex culture --Place pt on Doxycycline (4) Heel ulcer Current Visit: Yes Status: Acute Code(s): L97.409 - NON-PRS CHRONIC ULCER OF UNSP HEEL AND MIDFOOT W UNSP SEVERT SNOMED Code(s): 902908123 Comment: --Right heel --Awaiting any further recommendations from wound care --Continue quinolone (5) DVT prophylaxis Current Visit: Yes Comment: --On Rivaroxaban Status and Disposition: --Awaiting imaging on Thursday as described above --For PT eval to evaluate any needs
[2017-11-29] MEDS: Acetaminophen TAB* 325 MG PO PRN (16:14)
[2017-11-29] MEDS: NS 0.9% 1000 ML* 1,000 ML IV SCH (16:15)
[2017-11-29] MEDS: oxyCODONE TAB* 5 MG TAB PO PRN (16:17)
[2017-11-29] MEDS: DOXYcycline CAP(*) 100 MG PO SCH (22:15)
[2017-11-29] MEDS: traMADol TAB* 50 MG PO PRN (22:16)
[2017-11-30] MEDS: NS 0.9% 1000 ML* 1,000 ML IV SCH (06:10)
[2017-11-30] MEDS: Omeprazole CAP* 20 MG PO SCH (06:11)
[2017-11-30] MEDS: Levothyroxine TAB* 100 MCG TAB PO SCH (06:11)
[2017-11-30] MEDS: Rivaroxaban TAB(*) 15 MG PO SCH ×2 (09:49→16:22)
[2017-11-30] MEDS: DOXYcycline CAP(*) 100 MG PO SCH ×2 (09:49→22:09)
[2017-11-30] MEDS: Docusate CAP* 100 MG PO SCH ×2 (09:49→22:09)
[2017-11-30] MEDS ORDERED: Gadoteridol* (CONTRAST) 279.3 MG/ML 10 ML IV ONE ×2 (11:19→21:03)
[2017-11-30] MEDS: oxyCODONE TAB* 5 MG TAB PO PRN ×2 (12:52→19:41)
[2017-11-30] MEDS: traMADol TAB* 50 MG PO PRN (16:22)
--- NOTE | 2017-11-30 20:06 | PN ---
Subjective Date of Service: 11/30/17 Interval History: PHYSICAL EXAM: GEN APPEARANCE: Awake, not in acute distress HEENT: NC/AT, PERRLA, moist oral mucosa, (-) throat erythema NECK: Soft, supple, (-) cervical LAD, (-)JVD HEART: S1S2 WNL, RRR, No MRG CHEST: CTA, BL, GAE, No W/R/R ABD: Soft, ND/NT, NABS 4x Q EXT: No C/C/E SKIN: Warm to touch PSYCH: No active psychosis, hallucinations, depression, SI/HI Review of Systems - Measurements Intake and Output: Intake and Output Last 24 Hours 11/28/17 11/29/17 11/30/17 12/01/17 06:59 06:59 06:59 06:59 Intake Total 2944 1585 2676 2520 Output Total 1650 1925 1970 600 Balance 1294 -543 503 5660 Weight 165 lb Intake: IV Fluids 698 173 899 6962 ABX - CIPROFLOXACIN 200 LR 698 50 NS (0.9%) 436 1800 IVPB 206 205 200 ABX - CIPROFLOXACIN 206 205 200 Oral 2040 1130 2040 720 Output: Urine 0 Wen 1650 1925 1970 600 Other: # Bowel Movements 0 0 0 1 Estimated Stool Amount Medium Objective Active Medications: Acetaminophen (Tylenol Tab*) 650 mg PO Q6H PRN PRN Reason: FEVER/PAIN Last Admin: 11/29/17 16:14 Dose: 650 mg Docusate Sodium (Colace Cap*) 200 mg PO BID [facility] Last Admin: 11/30/17 09:49 Dose: 200 mg Doxycycline Hyclate (Vibramycin Cap(*)) 100 mg PO BID [facility] Stop: 12/09/17 20:59 Last Admin: 11/30/17 09:49 Dose: 100 mg Sodium Chloride (Ns 0.9% 1000 Ml*) 1,000 mls @ 75 mls/hr IV PER RATE [facility] Last Admin: 11/30/17 06:10 Dose: 75 mls/hr Levothyroxine Sodium (Synthroid Tab*) 200 mcg PO DAILY@0600 [facility] Last Admin: 11/30/17 06:11 Dose: 200 mcg Melatonin (Melatonin (Nf)) 3 mg PO BEDTIME PRN; Protocol PRN Reason: Sleep Omeprazole (Prilosec Cap*) 20 mg PO DAILY@0600 [facility] Last Admin: 11/30/17 06:11 Dose: 20 mg Ondansetron HCl (Zofran Inj*) 4 mg IV Q6H PRN PRN Reason: NAUSEA Oxycodone HCl (Roxycodone Tab*) 5 mg PO Q6H PRN PRN Reason: PAIN Last Admin: 11/30/17 19:41 Dose: 5 mg Rivaroxaban (Xarelto(*)) 15 mg PO BID WITH MEALS [facility] Last Admin: 11/30/17 16:22 Dose: 15 mg Tramadol HCl (Ultram*) 50 mg PO Q6H PRN PRN Reason: PAIN Last Admin: 11/30/17 16:22 Dose: 50 mg Vital Signs - 8 hr 11/30/17 11/30/17 11/30/17 12:41 12:52 14:29 Temperature 100.0 F 98.9 F Pulse Rate 83 90 Respiratory 16 16 16 Rate Blood Pressure 109/59 101/49 (mmHg) O2 Sat by Pulse 99 97 Oximetry 11/30/17 11/30/17 11/30/17 15:56 16:22 18:43 Temperature 99.3 F Pulse Rate 84 Respiratory 18 16 14 Rate Blood Pressure 106/61 (mmHg) O2 Sat by Pulse 98 Oximetry 11/30/17 11/30/17 19:06 19:41 Temperature 100.2 F Pulse Rate 95 Respiratory 20 16 Rate Blood Pressure 101/55 (mmHg) O2 Sat by Pulse 98 Oximetry Oxygen Devices in Use Now: None Result Diagrams: 11/29/17 07:13 11/29/17 07:13 Additional Lab and Data: Lab Results 11/26/17 11/26/17 11/26/17 Range/Units 20:48 20:48 20:48 WBC (3.5-10.8) 10^3/ul RBC (4.0-5.4) 10^6/ul Hgb (12.0-16.0) g/dl Hct (35-47) % MCV (80-97) fL MCH (27-31) pg MCHC (31-36) g/dl RDW (10.5-15) % Plt Count (150-450) 10^3/ul MPV (7.4-10.4) um3 Neut % (Auto) (38-83) % Lymph % (Auto) (25-47) % Wilcox % (Auto) (0-7) % Eos % (Auto) (0-6) % Baso % (Auto) (0-2) % Absolute Neuts (auto) (1.5-7.7) 10^3/ul Absolute Lymphs (auto) (1.0-4.8) 10^3/ul Absolute Monos (auto) (0-0.8) 10^3/ul Absolute Eos (auto) (0-0.6) 10^3/ul Absolute Basos (auto) (0-0.2) 10^3/ul Absolute Nucleated RBC 10^3/ul Nucleated RBC % INR (Anticoag Therapy) 1.05 H (0.77-1.02) APTT 26.6 (26.0-36.3) seconds D-Dimer, Quantitative > 1050 H (Less Than 230) ng/mL Sodium 137 L (139-145) mmol/L Potassium 4.0 (3.5-5.0) mmol/L Chloride 101 (101-111) mmol/L Carbon Dioxide 26 (22-32) mmol/L Anion Gap 10 (2-11) mmol/L BUN 31 H (6-24) mg/dL Creatinine 0.87 (0.51-0.95) mg/dL Est GFR ( Amer) 86.6 (>60) Est GFR (Non-Af Amer) 67.4 (>60) BUN/Creatinine Ratio 35.6 H (8-20) Glucose 106 H (70-100) mg/dL Lactic Acid (0.5-2.0) mmol/L Calcium 9.0 (8.6-10.3) mg/dL Magnesium 2.3 (1.9-2.7) mg/dL Total Bilirubin 0.90 (0.2-1.0) mg/dL AST 88 H (13-39) U/L ALT 40 (7-52) U/L Alkaline Phosphatase 86 (34-104) U/L Ammonia 47 (16-53) mcmol/L Total Creatine Kinase Pending CK-MB (CK-2) 7.0 H (0.6-6.3) ng/mL Troponin I 0.01 (<0.04) ng/mL C-Reactive Protein 128.63 H (< 5.00) mg/L B-Natriuretic Peptide 25 ( - 100) pg/mL Total Protein 7.1 (6.4-8.9) g/dL Albumin 3.6 (3.2-5.2) g/dL Globulin 3.5 (2-4) g/dL Albumin/Globulin Ratio 1.0 (1-3) Lipase 18 (11.0-82.0) U/L TSH Pending 11/26/17 11/26/17 Range/Units 20:48 20:48 WBC 15.7 H (3.5-10.8) 10^3/ul RBC 4.53 (4.0-5.4) 10^6/ul Hgb 13.2 (12.0-16.0) g/dl Hct 40 (35-47) % MCV 88 (80-97) fL MCH 29 (27-31) pg MCHC 33 (31-36) g/dl RDW 14 (10.5-15) % Plt Count 184 (150-450) 10^3/ul MPV 9.5 (7.4-10.4) um3 Neut % (Auto) 71.9 (38-83) % Lymph % (Auto) 20.0 L (25-47) % Wilcox % (Auto) 7.1 H (0-7) % Eos % (Auto) 0.6 (0-6) % Baso % (Auto) 0.4 (0-2) % Absolute Neuts (auto) 11.2 H (1.5-7.7) 10^3/ul Absolute Lymphs (auto) 3.1 (1.0-4.8) 10^3/ul Absolute Monos (auto) 1.1 H (0-0.8) 10^3/ul Absolute Eos (auto) 0.1 (0-0.6) 10^3/ul Absolute Basos (auto) 0.1 (0-0.2) 10^3/ul Absolute Nucleated RBC 0 10^3/ul Nucleated RBC % 0.1 INR (Anticoag Therapy) (0.77-1.02) APTT (26.0-36.3) seconds D-Dimer, Quantitative (Less Than 230) ng/mL Sodium (139-145) mmol/L Potassium (3.5-5.0) mmol/L Chloride (101-111) mmol/L Carbon Dioxide (22-32) mmol/L Anion Gap (2-11) mmol/L BUN (6-24) mg/dL Creatinine (0.51-0.95) mg/dL Est GFR ( Amer) (>60) Est GFR (Non-Af Amer) (>60) BUN/Creatinine Ratio (8-20) Glucose (70-100) mg/dL Lactic Acid 2.1 H* (0.5-2.0) mmol/L Calcium (8.6-10.3) mg/dL Magnesium (1.9-2.7) mg/dL Total Bilirubin (0.2-1.0) mg/dL AST (13-39) U/L ALT (7-52) U/L Alkaline Phosphatase (34-104) U/L Ammonia (16-53) mcmol/L Total Creatine Kinase CK-MB (CK-2) (0.6-6.3) ng/mL Troponin I (<0.04) ng/mL C-Reactive Protein (< 5.00) mg/L B-Natriuretic Peptide ( - 100) pg/mL Total Protein (6.4-8.9) g/dL Albumin (3.2-5.2) g/dL Globulin (2-4) g/dL Albumin/Globulin Ratio (1-3) Lipase (11.0-82.0) U/L TSH Microbiology and Other Data: Microbiology 11/29/17 10:30 Urine Culture - Final Urine No Growth (<1,000 CFU/mL) Assess/Plan/Problems-Billing 57 year old with a long history of MS, previously treated with IFN, Copaxone years ago but has been seeking homeopathic treatment for years with steady decline, falls, disabled, living with her parents, seems to have some cognitive issues as well with poor insight into level of disability. Admitted with inability to walk, LE pain, RLE DVT, PEs, UTI, anemia, rhabdo (improving), hypothyroid-untreated. At this point, I suspect she is probably in Secondary Progressive stage of MS although, without prior records, it is difficult to say. We are awaiting MRIs of the Brain, C and T spine which will happen Thursday. Given her acute medical issues, I would certainly not start any DMT for MS acutely. Given the progressive nature of her symptoms and unknown level of disability, I think the risks of steroids largely outweighs the risks with increased risk of infection and hypercoaguable state. The plan is to follow up imaging on Thursday when we might be able to make further recommendations, although decisions regarding the management of her MS will likely need to be made on an outpatient basis. She is adamant at this point about not wanting to take any DMT. I will be happy to see her as an outpatient once she is discharged. - Patient Problems (1) Multiple sclerosis Current Visit: Yes Comment: --Appreciate Dr. Frazier's input --Awaiting official results of MRIs of the brain, C&T spines done today complete neuro eval --Pt prefers no DMT and was on homeopathic therapy of MS as outpt (2) DVT (deep venous thrombosis) Current Visit: Yes Comment: --Concomittant with scattered PE on radiological exam --Continue Rivaroxaban (3) UTI (urinary tract infection) Current Visit: Yes Status: Acute Comment: --Likely secondary to E. coli given previous cultures; pt has been on antibiotic on Levaquin but was d/c'd and after 2 days of DC now with hematuria --U/A ordered with reflex culture --Place pt on Doxycycline (4) Heel ulcer Current Visit: Yes Status: Acute Code(s): L97.409 - NON-PRS CHRONIC ULCER OF UNSP HEEL AND MIDFOOT W UNSP SEVERT SNOMED Code(s): 236191587 Comment: --Right heel --Awaiting any further recommendations from wound care --Continue quinolone (5) DVT prophylaxis Current Visit: Yes Comment: --On Rivaroxaban Status and Disposition: --Awaiting imaging on Thursday as described above --For PT eval to evaluate any needs
--- NOTE | 2017-11-30 21:34 | RAD ---
HISTORY: Multiple sclerosis, weakness, spasticity COMPARISONS: None relevant TECHNIQUE: The following sequences were obtained of the thoracic spine: Sagittal and axial T1- and T2-weighted images, coronal T2-weighted images, and sagittal STIR images. Additionally, axial and sagittal T1 weighted images were obtained after contrast enhancement with a gadolinium-based intravenous contrast agent.. FINDINGS: Evaluation is limited secondary to extensive patient motion artifact. Localization is based on counting from C2 SPINAL CORD, CONUS, AND CAUDA EQUINA: Evaluation of the cord is limited secondary to extensive patient motion artifact. There are no obvious large or enhancing cord lesions. The study is considered insensitive for small lesions. ALIGNMENT: The alignment is normal. VERTEBRAL BODIES: The bones are normal in signal intensity. The vertebral bodies are preserved in height. JOINTS: There is no subluxation or dislocation. MUSCULATURE: Unremarkable INTERVERTEBRAL DISCS: The intervertebral discs are normal in height and T2 signal AXIAL IMAGES: There is no central canal stenosis or neuroforaminal narrowing. SOFT TISSUES: The visualized soft tissues of the chest and upper abdomen are unremarkable. OTHER: There is no abnormal enhancement. IMPRESSION: 1. EVALUATION IS LIMITED SECONDARY TO EXTENSIVE PATIENT MOTION ARTIFACT. 2. WITHIN THE LIMITATIONS OF THE STUDY, THERE ARE NO LARGE OR ENHANCING CORD LESIONS. 3. THERE IS NO SIGNIFICANT NEURAL FORAMINAL NARROWING OR CENTRAL CANAL STENOSIS.
--- NOTE | 2017-11-30 21:47 | RAD ---
HISTORY: Multiple sclerosis, weakness, spasticity COMPARISONS: None relevant TECHNIQUE: The following sequences were obtained of the cervical spine: Sagittal and axial T1- and T2-weighted images, sagittal STIR images, and axial gradient echo images. Additionally, axial and sagittal T1 weighted images were obtained after contrast enhancement with a gadolinium-based intravenous contrast agent.. FINDINGS: Evaluation limited by patient motion artifact. BRAIN AND SPINAL CORD: There is mild elevated cervical cord signal centrally anteriorly at the C4 and C4-C5. There is no associated abnormal enhancement. ALIGNMENT: There is straightening of the normal cervical lordosis. The alignment is otherwise normal. VERTEBRAL BODIES: There is mild anterolateral marginal osteophyte formation. JOINTS: There is no subluxation or dislocation. MUSCULATURE: Unremarkable INTERVERTEBRAL DISCS: There is mild diffuse loss of intervertebral disc height and T2 signal throughout the spine. AXIAL IMAGES: C2-C3: There is no disc herniation, spinal stenosis, or neuroforaminal narrowing. C3-C4: There is no disc herniation, spinal stenosis, or neuroforaminal narrowing. C4-C5: There is no disc herniation, spinal stenosis, or neuroforaminal narrowing. C5-C6: There is no disc herniation, spinal stenosis, or neuroforaminal narrowing. C6-C7: There is no disc herniation, spinal stenosis, or neuroforaminal narrowing. C7-T1: There is no disc herniation, spinal stenosis, or neuroforaminal narrowing. SOFT TISSUES: The visualized soft tissues of the neck are unremarkable. OTHER: There is no abnormal enhancement. IMPRESSION: 1. EVALUATION IS LIMITED BY PATIENT MOTION ARTIFACT. 2. THERE IS MILDLY ELEVATED SIGNAL WITHIN THE ANTERIOR CERVICAL CORD AT C3-C4 AND C4-C5, CONSISTENT WITH A MILD PLAQUE GIVEN THE HISTORY OF MULTIPLE SCLEROSIS. 3. THERE IS NO ABNORMAL ENHANCEMENT TO SUGGEST ACTIVE INFLAMMATION. 4. THERE IS NO SIGNIFICANT NEURAL FORAMINAL NARROWING OR CENTRAL CANAL STENOSIS.
[2017-12-01] MEDS: NS 0.9% 1000 ML* 1,000 ML IV SCH ×2 (00:02→13:36)
[2017-12-01] MEDS: Levothyroxine TAB* 100 MCG TAB PO SCH (05:41)
[2017-12-01] MEDS: Omeprazole CAP* 20 MG PO SCH (05:41)
--- NOTE | 2017-12-01 08:25 | RAD ---
INDICATION: MS staging. COMPARISON: Comparison is made with a prior study from August 07, 2005. TECHNIQUE: Sagittal T1, axial T1, T2, susceptibility, FLAIR and diffusion-weighted images were obtained. In addition, axial, sagittal and coronal T1-weighted images were obtained following intravenous injection of 15 ml of ProHance contrast. The exam is limited due to motion artifact. FINDINGS: The ventricles, cisterns and sulci are prominent consistent with diffuse atrophy. There is diffuse atrophy of the corpus callosum. There is prominent confluent areas of increased signal intensity on T2-weighted images present in the periventricular and subcortical white matter. These have progressed slightly from the prior study. No abnormal area of enhancement is seen. No areas of restricted diffusion are present. There is no evidence for infarct or hemorrhage. The visualized portion of the paranasal sinuses and mastoid air cells appear clear. IMPRESSION: 1. DIFFUSE ATROPHY AND CONFLUENT AREAS OF INCREASED SIGNAL INTENSITY IN T2-WEIGHTED IMAGES IN THE PERIVENTRICULAR AND SUBCORTICAL WHITE MATTER MOST CONSISTENT WITH PLAQUES AND ADVANCED STAGE MULTIPLE SCLEROSIS GIVEN THE PATIENT'S CLINICAL HISTORY. THERE IS SLIGHT PROGRESSION FROM THE PRIOR STUDY. 2. SLIGHTLY LIMITED EXAM DUE TO MOTION ARTIFACT.
[2017-12-01] MEDS: Rivaroxaban TAB(*) 15 MG PO SCH ×2 (08:30→16:06)
[2017-12-01] MEDS: DOXYcycline CAP(*) 100 MG PO SCH ×2 (08:30→20:12)
[2017-12-01] MEDS: traMADol TAB* 50 MG PO PRN ×2 (08:30→16:05)
[2017-12-01] MEDS: Docusate CAP* 100 MG PO SCH ×2 (08:30→20:11)
[2017-12-01] MEDS ORDERED: Metoclopramide IV* 5 MG/ML 2 ML VIAL ONE (09:33)
[2017-12-01] MEDS: Metoclopramide IV* 5 MG/ML 2 ML VIAL IV PRN ×2 (09:38→16:06)
[2017-12-01] MEDS: oxyCODONE TAB* 5 MG TAB PO PRN (12:12)
--- NOTE | 2017-12-01 12:12 | PN ---
Objective Active Medications: Acetaminophen (Tylenol Tab*) 650 mg PO Q6H PRN PRN Reason: FEVER/PAIN Last Admin: 11/29/17 16:14 Dose: 650 mg Docusate Sodium (Colace Cap*) 200 mg PO BID [facility] Last Admin: 12/01/17 08:30 Dose: 200 mg Doxycycline Hyclate (Vibramycin Cap(*)) 100 mg PO BID [facility] Stop: 12/09/17 20:59 Last Admin: 12/01/17 08:30 Dose: 100 mg Sodium Chloride (Ns 0.9% 1000 Ml*) 1,000 mls @ 75 mls/hr IV PER RATE [facility] Last Admin: 12/01/17 00:02 Dose: 75 mls/hr Levothyroxine Sodium (Synthroid Tab*) 200 mcg PO DAILY@0600 [facility] Last Admin: 12/01/17 05:41 Dose: 200 mcg Melatonin (Melatonin (Nf)) 3 mg PO BEDTIME PRN; Protocol PRN Reason: Sleep Metoclopramide HCl (Reglan Iv*) 10 mg IV Q6H PRN PRN Reason: NAUSEA/VOMITING Last Admin: 12/01/17 09:38 Dose: 10 mg Omeprazole (Prilosec Cap*) 20 mg PO DAILY@0600 [facility] Last Admin: 12/01/17 05:41 Dose: 20 mg Ondansetron HCl (Zofran Inj*) 4 mg IV Q6H PRN PRN Reason: NAUSEA Oxycodone HCl (Roxycodone Tab*) 5 mg PO Q6H PRN PRN Reason: PAIN Last Admin: 11/30/17 19:41 Dose: 5 mg Rivaroxaban (Xarelto(*)) 15 mg PO BID WITH MEALS [facility] Last Admin: 12/01/17 08:30 Dose: 15 mg Tramadol HCl (Ultram*) 50 mg PO Q6H PRN PRN Reason: PAIN Last Admin: 12/01/17 08:30 Dose: 50 mg Vital Signs 11/30/17 11/30/17 11/30/17 12:41 12:52 14:29 Temperature 100.0 F 98.9 F Pulse Rate 83 90 Respiratory 16 16 16 Rate Blood Pressure 109/59 101/49 (mmHg) O2 Sat by Pulse 99 97 Oximetry 11/30/17 11/30/17 11/30/17 15:56 16:22 18:43 Temperature 99.3 F Pulse Rate 84 Respiratory 18 16 14 Rate Blood Pressure 106/61 (mmHg) O2 Sat by Pulse 98 Oximetry 11/30/17 11/30/17 11/30/17 19:06 19:41 20:00 Temperature 100.2 F Pulse Rate 95 Respiratory 20 16 20 Rate Blood Pressure 101/55 (mmHg) O2 Sat by Pulse 98 Oximetry 11/30/17 12/01/17 12/01/17 23:48 03:35 07:37 Temperature 99.3 F 98.5 F 98.7 F Pulse Rate 83 80 73 Respiratory 16 16 16 Rate Blood Pressure 100/50 113/52 104/56 (mmHg) O2 Sat by Pulse 99 97 100 Oximetry 12/01/17 12/01/17 08:00 08:30 Temperature Pulse Rate Respiratory 18 16 Rate Blood Pressure (mmHg) O2 Sat by Pulse Oximetry Oxygen Devices in Use Now: None Neurology Exam: General: Awake, Alert, Oriented x3 HEENT: Normocephelic/atraumstic, sclera anicteric, mucous membranes moist Neck: Supple Chest: Clear to auscultation bilaterally Cardiovascular: Regular rate and rhythm without murmurs, rubs, gallops Abdomen: Soft, nontender/nondistended Extremities: No clubing, cyanosis, or edema Neurological Findings: Awake, Alert, Oriented x3 Speech: fluent without dysarthric, repetition intact Cranial Nerve: PEERL, EOM intact, VFF, no nystagmus, face symmetric bilaterally , facial sensation intact, hearing intact to finger rub bilaterally, palate elevates symmetrically, tongue midline, SCM and Trapezius s/s. Motor: s/s throughout, proximal and distal extremities x4 tone/bulk normal Sensation: intact to LT/PP bilaterally upper and lower extremities Deep Tendon Reflex: 2+ symmetric in the upper/lower extremities, Babinski - down going Finger to nose, rapid alternating movements intact without tremor, no dysdiadochokinesia Gait: intact with good arm swing and stride Result Diagrams: 11/29/17 07:13 11/29/17 07:13 Additional Lab and Data: Lab Results 11/26/17 11/26/17 11/26/17 Range/Units 20:48 20:48 20:48 WBC (3.5-10.8) 10^3/ul RBC (4.0-5.4) 10^6/ul Hgb (12.0-16.0) g/dl Hct (35-47) % MCV (80-97) fL MCH (27-31) pg MCHC (31-36) g/dl RDW (10.5-15) % Plt Count (150-450) 10^3/ul MPV (7.4-10.4) um3 Neut % (Auto) (38-83) % Lymph % (Auto) (25-47) % Swain % (Auto) (0-7) % Eos % (Auto) (0-6) % Baso % (Auto) (0-2) % Absolute Neuts (auto) (1.5-7.7) 10^3/ul Absolute Lymphs (auto) (1.0-4.8) 10^3/ul Absolute Monos (auto) (0-0.8) 10^3/ul Absolute Eos (auto) (0-0.6) 10^3/ul Absolute Basos (auto) (0-0.2) 10^3/ul Absolute Nucleated RBC 10^3/ul Nucleated RBC % INR (Anticoag Therapy) 1.05 H (0.77-1.02) APTT 26.6 (26.0-36.3) seconds D-Dimer, Quantitative > 1050 H (Less Than 230) ng/mL Sodium 137 L (139-145) mmol/L Potassium 4.0 (3.5-5.0) mmol/L Chloride 101 (101-111) mmol/L Carbon Dioxide 26 (22-32) mmol/L Anion Gap 10 (2-11) mmol/L BUN 31 H (6-24) mg/dL Creatinine 0.87 (0.51-0.95) mg/dL Est GFR ( Amer) 86.6 (>60) Est GFR (Non-Af Amer) 67.4 (>60) BUN/Creatinine Ratio 35.6 H (8-20) Glucose 106 H (70-100) mg/dL Lactic Acid (0.5-2.0) mmol/L Calcium 9.0 (8.6-10.3) mg/dL Magnesium 2.3 (1.9-2.7) mg/dL Total Bilirubin 0.90 (0.2-1.0) mg/dL AST 88 H (13-39) U/L ALT 40 (7-52) U/L Alkaline Phosphatase 86 (34-104) U/L Ammonia 47 (16-53) mcmol/L Total Creatine Kinase Pending CK-MB (CK-2) 7.0 H (0.6-6.3) ng/mL Troponin I 0.01 (<0.04) ng/mL C-Reactive Protein 128.63 H (< 5.00) mg/L B-Natriuretic Peptide 25 ( - 100) pg/mL Total Protein 7.1 (6.4-8.9) g/dL Albumin 3.6 (3.2-5.2) g/dL Globulin 3.5 (2-4) g/dL Albumin/Globulin Ratio 1.0 (1-3) Lipase 18 (11.0-82.0) U/L TSH Pending 11/26/17 11/26/17 Range/Units 20:48 20:48 WBC 15.7 H (3.5-10.8) 10^3/ul RBC 4.53 (4.0-5.4) 10^6/ul Hgb 13.2 (12.0-16.0) g/dl Hct 40 (35-47) % MCV 88 (80-97) fL MCH 29 (27-31) pg MCHC 33 (31-36) g/dl RDW 14 (10.5-15) % Plt Count 184 (150-450) 10^3/ul MPV 9.5 (7.4-10.4) um3 Neut % (Auto) 71.9 (38-83) % Lymph % (Auto) 20.0 L (25-47) % Swain % (Auto) 7.1 H (0-7) % Eos % (Auto) 0.6 (0-6) % Baso % (Auto) 0.4 (0-2) % Absolute Neuts (auto) 11.2 H (1.5-7.7) 10^3/ul Absolute Lymphs (auto) 3.1 (1.0-4.8) 10^3/ul Absolute Monos (auto) 1.1 H (0-0.8) 10^3/ul Absolute Eos (auto) 0.1 (0-0.6) 10^3/ul Absolute Basos (auto) 0.1 (0-0.2) 10^3/ul Absolute Nucleated RBC 0 10^3/ul Nucleated RBC % 0.1 INR (Anticoag Therapy) (0.77-1.02) APTT (26.0-36.3) seconds D-Dimer, Quantitative (Less Than 230) ng/mL Sodium (139-145) mmol/L Potassium (3.5-5.0) mmol/L Chloride (101-111) mmol/L Carbon Dioxide (22-32) mmol/L Anion Gap (2-11) mmol/L BUN (6-24) mg/dL Creatinine (0.51-0.95) mg/dL Est GFR ( Amer) (>60) Est GFR (Non-Af Amer) (>60) BUN/Creatinine Ratio (8-20) Glucose (70-100) mg/dL Lactic Acid 2.1 H* (0.5-2.0) mmol/L Calcium (8.6-10.3) mg/dL Magnesium (1.9-2.7) mg/dL Total Bilirubin (0.2-1.0) mg/dL AST (13-39) U/L ALT (7-52) U/L Alkaline Phosphatase (34-104) U/L Ammonia (16-53) mcmol/L Total Creatine Kinase CK-MB (CK-2) (0.6-6.3) ng/mL Troponin I (<0.04) ng/mL C-Reactive Protein (< 5.00) mg/L B-Natriuretic Peptide ( - 100) pg/mL Total Protein (6.4-8.9) g/dL Albumin (3.2-5.2) g/dL Globulin (2-4) g/dL Albumin/Globulin Ratio (1-3) Lipase (11.0-82.0) U/L TSH Microbiology and Other Data: Microbiology 11/29/17 10:30 Urine Culture - Final Urine No Growth (<1,000 CFU/mL) Assessment/Plan 57 year old with a long history of MS, previously treated with IFN, Copaxone years ago but has been seeking homeopathic treatment for years with steady decline, falls, disabled, living with her parents, seems to have some cognitive issues as well with poor insight into level of disability. Admitted with inability to walk, LE pain, RLE DVT, PEs, UTI, anemia, rhabdo (improving), hypothyroid-untreated. At this point, I suspect she is probably in Secondary Progressive stage of MS although, without prior records, it is difficult to say. We are awaiting MRIs of the Brain, C and T spine which will happen Thursday. Given her acute medical issues, I would certainly not start any DMT for MS acutely. Given the progressive nature of her symptoms and unknown level of disability, I think the risks of steroids largely outweighs the risks with increased risk of infection and hypercoaguable state. The plan is to follow up imaging on Thursday when we might be able to make further recommendations, although decisions regarding the management of her MS will likely need to be made on an outpatient basis. She is adamant at this point about not wanting to take any DMT. I will be happy to see her as an outpatient once she is discharged.
--- NOTE | 2017-12-01 22:18 | PN ---
NEUROLOGY PROGRESS NOTE: DATE OF SERVICE: 12/01/17 HISTORY: This is a 57-year-old female, who has a history of multiple sclerosis. She has not received any disease modifying therapy. The patient was found to have DVT and was started on rivaroxaban. She was also found to have urinary tract infection and was started on antibiotic therapy, doxycycline. Since admission on 11/26/17, the patient stated that she feels that her lower extremity symptoms are slightly improving. She still has trouble walking. She has no impairment in her bowel or bladder functions. She denied any headaches, visual disturbance, or swallowing difficulty. REVIEW OF SYSTEMS: She denied chest pain or shortness of breath. Otherwise, as per HPI. PHYSICAL EXAM: Vitals: T 99 , P 74, RR 16, BP 104/54. General: Well- appearing pleasant, but pleasantly demented female, in no acute distress. She is resting in bed comfortably. Head: Normocephalic without obvious abnormality. Eyes: Conjunctivae/cornea are clear. Neck: Supple, symmetric. No carotid bruits. Lungs: Clear to auscultation bilaterally. Nonlabored breathing. Cardiovascular: Regular rhythm. S1, S2 is normal. Extremities: Normal range of motion with no cyanosis in the upper extremity. Psych: Affect is flat with normal mood. Neurological Examination: The patient is awake, alert to self and oriented to place, but not time. She has psychomotor slowing. She was unable to repeat any of the 3 words after 30 seconds. She was unable to spell the word "world" backwards. Serial 7s was very difficult after 93. Cranial nerves: Normal confrontation bilaterally. Pupils mid range and reactive to light. Extraocular muscles are intact. No afferent pupillary defect. Sensation is intact on the forehead, cheeks, and jaw region. No facial asymmetry. Able to hear throughout the history taking. Tongue is symmetric and midline. Motor exam: No abnormal movements. She does have increase in tone and spasticity of the lower extremity. Normal bulk throughout. No fasciculation. Hip flexion, knee flexion, and ankle dorsiflexion is graded as 4/5 on the right and 3/5 on the left. Otherwise, 5/5 throughout the muscle strength. 2+ reflexes in bilateral brachioradialis, biceps, and triceps with 3+ at the patella and 2+ at the ankles bilaterally. There was flexor plantar response. Sensation is intact to light touch, but temperature sensation seems to be reduced at the left lower extremity. Normal [id number] bilaterally. Gait was not assessed due to her lower extremity weakness. DIAGNOSTIC STUDIES/LAB DATA: Imaging studies: 1. MRI brain with and without contrast: Diffuse atrophy and confluent areas of increased signal intensity in T2 weighted images in the periventricular and subcortical white matter most consistent with plaques and advanced-stage multiple sclerosis given the patient's clinical history. There is slight progression from the prior study. 2. MRI cervical spine completed on 11/30/17, evaluation is limited, but there is mildly elevated signal within the anterior cervical cord at C3-4 and C4-5 consistent with mild plaque given the history of multiple sclerosis. There is no abnormal enhancement to suggest active inflammation. 3. MRI of the thoracic spine completed on 11/30/17. Again, the study is limited due to motion artifact, but there is no large enhancing cord lesion. Imaging as discussed above. Urine culture was positive for E. coli. ASSESSMENT AND PLAN: Ms. 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 She was found to have a right lower extremity deep venous thrombosis, pulmonary embolism, and urinary tract infection. She was also found to be severely hypothyroid. MRIs of the brain, C-spine, T-spine with and without contrast were obtained. Although the images were limited, there were no largely enhancing lesions to suspect that there is active demyelinating lesion. I do not think steroid would be of any benefit at this point. She does need to be on long-term disease modifying therapy. Also, we suspect that diagnosis here is secondary progressive multiple sclerosis, which is also supported by the degree of atrophy on the MRI of the brain. Please schedule the patient to follow up with our neurologist in [place] to discuss potential disease modifying therapy. In her case, treatments are really limited and mostly consist of supportive care. In order to prevent any further flare-up, improving her risk of developing any infections in the future is the goal. Ocrevus may be an option for her. I discussed the above-mentioned plan with the primary team. Please make sure we obtain Physical Therapy consultation and consider possible short-term rehabilitation. [id number]/[facility] #: [id number] MTDD
[2017-12-02] MEDS: NS 0.9% 1000 ML* 1,000 ML IV SCH ×2 (02:39→16:56)
[2017-12-02 05:33] LABS: ABS Basophils 0 10^3/ul (0-0.2); ABS Eosinophils 0.4 10^3/ul (0-0.6); ABS Lymphocytes 2.9 10^3/ul (1.0-4.8); ABS Monocytes 0.8 10^3/ul (0-0.8); ABS Neutrophils 5.9 10^3/ul (1.5-7.7); ABS Nucleated RBC 0 10^3/ul; Eosinophil % 3.7 % (0-6); Hematocrit 29 % (35-47); Hemoglobin 9.8 g/dl (12.0-16.0); Lymphocyte % 28.6 % (25-47); Mean Corpuscular HGB Conc 34 g/dl (31-36); Mean Corpuscular Hemoglobin 29 pg (27-31); Mean Corpuscular Volume 88 fL (80-97); Mean Platelet Volume 8.1 um3 (7.4-10.4); Nucleated Red Blood Cells % 0; Platelet Count 282 10^3/ul (150-450); Red Blood Count 3.33 10^6/ul (4.0-5.4); Red Cell Distribution Width 13 % (10.5-15)
[2017-12-02 05:56] LABS: EGFR Non-African American 107.5 (>60)
[2017-12-02] MEDS: Levothyroxine TAB* 100 MCG TAB PO SCH (06:29)
[2017-12-02] MEDS: Omeprazole CAP* 20 MG PO SCH (06:29)
[2017-12-02] MEDS: Rivaroxaban TAB(*) 15 MG PO SCH ×2 (07:57→16:57)
[2017-12-02] MEDS: Docusate CAP* 100 MG PO SCH ×2 (07:57→21:17)
[2017-12-02] MEDS: DOXYcycline CAP(*) 100 MG PO SCH ×2 (07:57→21:17)
[2017-12-02] MEDS ORDERED: Ondansetron ODT TAB* 4 MG PO PRN (09:17)
--- NOTE | 2017-12-02 14:54 | DS ---
CC: Dr. Yo Webber; Dr. Kip Seals; Dr. Vargas * DISCHARGE SUMMARY: DATE OF ADMISSION: 11/27/17 DATE OF DISCHARGE: 12/02/17 DISCHARGE DIAGNOSES: As follows: 1. Secondary progressive multiple sclerosis. 2. Deep venous thrombosis. 3. Urinary tract infection. 4. Heel ulcer. HISTORY OF PRESENT ILLNESS/HOSPITAL COURSE: The patient is 57-year-old lady with history of multiple sclerosis, not on therapy, who lives at home with her mother and does not follow with Neurology and takes no medications for MS. She was previously on Copaxone; however, she did not tolerate this well and since then, she did not want to be placed on any disease- modifying therapy for her MS. She presented with confusion and fall in her facility on 11/26/17 and was found to have extensive right lower extremity DVT and bilateral pulmonary embolism and had been placed on rivaroxaban since. Her MS was untreated and has been followed by Dr. Yo Webber in the neurology department and mentions that she will need followup with Neuro in about 1 week post discharge to start her on DMT. She will require rehab and has been placed on [place]. She also was found to have UTI and currently on antibiotic therapy that she should finish for 8 more days of antibiotic therapy. The above plan was discussed and reviewed with the patient prior to discharge and agrees with the above assessment and plan. REVIEW OF SYSTEMS: The patient denied any recent headaches, dizziness, fevers, chills, nausea, vomiting, chest pain, shortness of breath, increased coughing or sputum production, abdominal pain, diarrhea, constipation, pain and/or increased frequency on urination, myalgias or arthralgias, throat pain, or new skin lesions. The rest of the 14-point review of systems is otherwise unremarkable. PHYSICAL EXAMINATION: Shows the most recent vital signs of record with blood pressure of 98/48 from previous of 113/59, saturating at 97%, respiratory rate of 18, heart rate of 73 per minute, 98.9 degrees Fahrenheit. General Appearance : The patient is awake, not in acute distress. HEENT: Normocephalic, atraumatic. PERRLA. Extraocular muscles intact. Negative for icterus. Moist oral mucosa. Negative for throat erythema. Neck is soft, supple with no cervical lymphadenopathy. Heart: S1, S2 within normal limits. Regular rate and rhythm. No murmurs, rubs, or gallops. Chest: Clear to auscultation bilaterally. Good air entry. No wheezes, rales, or rhonchi. Abdomen is soft, nondistended, nontender. Normoactive bowel sounds x4. Extremities: No cyanosis , clubbing, with 1+ bilateral lower extremity edema. Psychiatric: No active psychosis, depression, suicidal, or homicidal ideations. Skin is warm to touch. TIME SPENT: The total time spent evaluating the patient, reviewing pertinent data, and appropriate documentation is greater than 30 minutes. [id number]/[facility] #: [id number] MTDD
[2017-12-02] MEDS: oxyCODONE TAB* 5 MG TAB PO PRN (21:17)
[2017-12-02] MEDS: Acetaminophen TAB* 325 MG PO PRN (23:35)
[2017-12-03] MEDS: NS 0.9% 1000 ML* 1,000 ML IV SCH (07:52)
[2017-12-03] MEDS: DOXYcycline CAP(*) 100 MG PO SCH (07:59)
[2017-12-03] MEDS: Docusate CAP* 100 MG PO SCH (07:59)
[2017-12-03] MEDS: Rivaroxaban TAB(*) 15 MG PO SCH (07:59)
[2017-12-03] MEDS: Omeprazole CAP* 20 MG PO SCH (07:59)
[2017-12-03] MEDS: Levothyroxine TAB* 100 MCG TAB PO SCH (07:59)
--- NOTE | 2017-12-03 11:43 | DS ---
ADDENDUM: DISCHARGE SUMMARY: DATE OF SERVICE: 12/03/17 The patient was seen and examined. Meds and labs reviewed. The patient was officially discharged yesterday; however, remained in the hospital, given her rehab facility would not take her in the afternoon. Earlier this morning, however, nursing staff reported to me that the patient fell while trying to get out of bed. Upon evaluation, unfortunately, the patient is a poor historian given her untreated MS and could not provide any details. However, she does mention that the only thing that she hit when she "fell" was both of her knees. She denied any increased pain anywhere else. REVIEW OF SYSTEMS: Please see above, but denied any headaches, dizziness, fevers, chills, nausea, vomiting, chest pain, shortness of breath, increased cough. No sputum production, abdominal pain, diarrhea, constipation, pain and/ or increased frequency in urination. Knee pain as described above. Denied any throat pain or new skin lesions. The rest of the 14-point review of systems is otherwise unremarkable. PHYSICAL EXAMINATION: Reveals most recent vital signs of record as follows, blood pressure 116/61, 70 beats per minute heart rate, 16 per minute respiratory rate, 100% saturation at room air. General Appearance: The patient is awake, not in acute distress. HEENT: Normocephalic, atraumatic. PERRLA. Extraocular muscles intact. Negative for icterus. Moist oral mucosa. Negative throat erythema. Neck is soft, supple, with no cervical lymphadenopathy. No JVD. Heart: S1, S2 within normal limits. Regular rate and rhythm. No murmurs, rubs, or gallops. Chest: Clear to auscultation bilaterally. Good air entry. No wheezes, rales, or rhonchi. Abdomen: Soft, nondistended, nontender. Normoactive bowel sounds 4 times. Extremities: No cyanosis or clubbing, with 1 to 2+ bilateral lower extremity edema. Musculoskeletal Exam: Negative for drawer signs on both knee and there is no limitation in passive motion of bilateral knee. There are no signs of contusions or inflammation around the area, and furthermore, her pelvis was gently shaken and did not elicit any pain and/or tenderness as well as other visually inspected per given history. ASSESSMENT AND PLAN: At this time, we will order bilateral knee x-rays to make sure there are no other bony abnormalities that may be found given she is a poor historian. If these are negative, she can be discharged as planned to her [facility] facility. I have spoken with both the patient and her nurse at bedside regarding this plan. Pt's BL knee X-rays were unremarkable for fractures [id number]/[facility] #: [id number] MTDD
--- NOTE | 2017-12-03 12:28 | RAD ---
INDICATION: Bilateral knee pain COMPARISON: None TECHNIQUE: 2 views of each knee were obtained. FINDINGS: The bony structures are normally mineralized. There are no acute bony findings. There is moderate, bilateral, medial joint space narrowing. There is minor bilateral patellofemoral osteoarthritic. There are no joint effusions. There is soft tissue edema about both lower extremities IMPRESSION: MINOR, BILATERAL OSTEOARTHRITIC CHANGES. SOFT TISSUE EDEMA
[2017-12-03 12:59] VITALS: BP 101/54
== END 2017-12-03 15:30 | DRG 58 ==
LOC: ED 18:59 → MED 23:56 → UNDOADMIN 11-27 → UNDODISIN 12-03 15:30
PROVIDERS: ADMIT Hospitalist; ATTEND Student in an Organized Health Care Education/Training Program
DX: G35 Multiple sclerosis (principal); I26.99 Other pulmonary embolism without acute cor pulmonale; L97.419 Non-pressure chronic ulcer of right heel and midfoot with unspecified severity; N39.0 Urinary tract infection, site not specified; M62.82 Rhabdomyolysis; I82.411 Acute embolism and thrombosis of right femoral vein; I82.431 Acute embolism and thrombosis of right popliteal vein; I82.441 Acute embolism and thrombosis of right tibial vein; I82.491 Acute embolism and thrombosis of other specified deep vein of right lower extremity; G89.29 Other chronic pain; Z88.1 Allergy status to other antibiotic agents; Z88.8 Allergy status to other drugs, medicaments and biological substances; Z82.49 Family history of ischemic heart disease and other diseases of the circulatory system; R40.2412 Glasgow coma scale score 13-15, at arrival to emergency department; Z91.81 History of falling; E03.9 Hypothyroidism, unspecified; E66.3 Overweight; Z81.8 Family history of other mental and behavioral disorders; H50.52 Exophoria; R91.1 Solitary pulmonary nodule; Z68.27 Body mass index [BMI] 27.0-27.9, adult
CPT/HCPCS: 36415; 70450; 70553; 71045; 71275; 72125; 72131; 72156; 72157; 74176; 80048; 80053; 81003; 81015; 82140; 82550; 82553; 82607; 82746; 83605; 83690; 83735; 83880; 84443; 84484; 85025; 85379; 85610; 85730; 86140; 87077; 87086; 87186; 93970; 99284; A9270-GY; A9579; G8978-GP-CM; G8979-GP-CI; G8979-GP-CK; J0744; J2270; J2765; Q9967